=== PATIENT | female | born 1985 | race Caucasian/White ===

== ENCOUNTER 2018-11-15 12:52 | Emergency (ER) | payer SELFPAY ==
[~2018-11-15] VITALS: Ht 170.2 cm; Wt 83.9 kg
[2018-11-15] MEDS: LACTATED RINGERS 1,000 ML IV ONE ×2 (14:01→18:14)
[2018-11-15 14:40] LABS: BASOPHILS % (AUTO) 1 % (0-10); EOSINOPHILS % (AUTO) 1 % (0-10); HEMATOCRIT 40 % (35-52); HEMOGLOBIN 13.8 G/DL (11.5-16.0); LYMPHOCYTES % (AUTO) 21 % (12-44); MEAN CORPUSCULAR HEMOGLOBIN 28 PG (25-34); MEAN CORPUSCULAR HGB CONC 34 G/DL (32-36); MEAN CORPUSCULAR VOLUME 83 FL (80-99); MEAN PLATELET VOLUME 12.3 FL (7.4-10.4); MONOCYTES % (AUTO) 5 % (0-12); NEUTROPHILS % (AUTO) 72 % (42-75); PLATELET COUNT 246 10^3/uL (130-400); RED CELL DISTRIBUTION WIDTH 12.9 % (10.0-14.5)
[2018-11-15 14:41] LABS: BASOPHILS # (AUTO) 0.1 10^3/uL (0.0-0.1); EOSINOPHILS # (AUTO) 0.1 10^3/uL (0.0-0.3); LYMPHOCYTES # (AUTO) 1.7 X 10^3 (1.0-4.0); MONOCYTES # (AUTO) 0.4 X 10^3 (0.0-1.0); NEUTROPHILS # (AUTO) 5.8 X 10^3 (1.8-7.8)
[2018-11-15 15:07] LABS: SODIUM 139 MMOL/L (135-145)
[2018-11-15 15:08] LABS: BUN/CREATININE RATIO 27; CARBON DIOXIDE 21 MMOL/L (21-32); CHLORIDE 102 MMOL/L (98-107); CREATININE SERUM 0.71 MG/DL (0.60-1.30); GFR ESTIMATED > 60; GLUCOSE 85 MG/DL (70-105); POTASSIUM 3.6 MMOL/L (3.6-5.0)
[2018-11-15 15:09] LABS: ALANINE AMINOTRANSFERASE 12 U/L (0-55); ALKALINE PHOSPHATASE 68 U/L (40-136); BILIRUBIN,TOTAL 0.7 MG/DL (0.1-1.0); CALCIUM 9.3 MG/DL (8.5-10.1); TOTAL PROTEIN 7.4 GM/DL (6.4-8.2)
[2018-11-15] MEDS ORDERED: LACTATED RINGERS 1,000 ML IV SCH (15:30)
[2018-11-15 15:32] VITALS: BP 104/50
--- NOTE | 2018-11-15 15:45 | NUR ---
Transferred from cart in triage room to ER 06 via bed, room now available.
[2018-11-15] MEDS ORDERED: LACTATED RINGERS 1,000 ML IV ONE (16:32)
[2018-11-15 17:02] LABS: AMPHETAMINE SCREEN, URINE POSITIVE (NEGATIVE); BARBITURATE SCREEN URINE NEGATIVE (NEGATIVE); BENZODIAZEPINES SCREEN URINE NEGATIVE (NEGATIVE); CANNABINOID SCREEN, URINE POSITIVE (NEGATIVE); CLARITY,URINE CLEAR; COCAINE SCREEN URINE NEGATIVE (NEGATIVE); COLOR,URINE YELLOW; METHADONE STAT NEGATIVE (NEGATIVE); METHAMPHETAMINE SCREEN URINE S NEGATIVE (NEGATIVE); OPIATE SCREEN URINE NEGATIVE (NEGATIVE); OXYCODONE STAT NEGATIVE (NEGATIVE); PROPOXYPHENE STAT NEGATIVE (NEGATIVE); TRICYCLIC ANTIDEPRESSANTS SCRE NEGATIVE (NEGATIVE)
[2018-11-15 17:03] LABS: BILIRUBIN,URINE 1+ (NEGATIVE); GLUCOSE, URINE (UA) NEGATIVE (NEGATIVE); KETONES,URINE 3+ (NEGATIVE); LEUKOCYTE ESTERASE ,URINE NEGATIVE (NEGATIVE); NITRITE,URINE NEGATIVE (NEGATIVE); PROTEIN,URINE NEGATIVE (NEGATIVE); SQUAMOUS EPITHELIAL CELL,UR RARE /HPF; UROBILINOGEN,URINE 0.2 MG/DL (NORMAL)
--- NOTE | 2018-11-15 17:22 | ED Neurological Problem ---
General Chief Complaint: General Problems/Pain Stated Complaint: TREMORS Source: patient, family, RN notes reviewed Exam Limitations: no limitations History of Present Illness Date Seen by Provider: November 15, 2018 Time Seen by Provider: 13:40 Initial Comments Patient presents c/ c/o shaking, stress, & depression. Reportedly hasn't eaten has several days. Been laying in bed. Going thru a divorce. Timing/Duration: constant, increasing Severity: moderate Associated Symptoms: denies symptoms (x/ as noted.) Allergies and Home Medications Allergies Coded Allergies: No Known Drug Allergies (Unverified , 11/15/18) Patient Home Medication List Home Medication List Reviewed: Yes Review of Systems Review of Systems Constitutional: see HPI, weight loss : No Psychiatric/Neurological: See HPI, Depressed All Other Systems Reviewed Negative Unless Noted: Yes (Negative excepted noted.) Physical Exam Vital Signs Vital Signs - First Documented 11/15/18 13:06 Temp 97.7 Pulse 122 Resp 20 B/P (MAP) 146/88 (107) Pulse Ox 97 O2 Delivery Room Air Capillary Refill : Height, Weight, BMI Height: '" Weight: lbs. oz. kg; BMI Method: General Appearance: WD/WN, no apparent distress HEENT: other (mucosa very dry) Respiratory: no respiratory distress Cardiovascular: tachycardia Gastrointestinal: soft; No tenderness Neurologic/Psychiatric: no motor/sensory deficits, alert, depressed affect Skin: warm/dry Progress/Results/Core Measures Results/Orders Lab Results Laboratory Tests Test 11/15/18 13:32 11/15/18 13:50 11/15/18 16:31 Range/Units Glucometer 86 70-110 MG/DL White Blood Count 8.0 4.3-11.0 10^3/uL Red Blood Count 4.88 4.35-5.85 10^6/uL Hemoglobin 13.8 11.5-16.0 G/DL Hematocrit 40 35-52 % Mean Corpuscular Volume 83 80-99 FL Mean Corpuscular Hemoglobin 28 25-34 PG Mean Corpuscular Hemoglobin Concent 34 32-36 G/DL Red Cell Distribution Width 12.9 10.0-14.5 % Platelet Count 246 130-400 10^3/uL Mean Platelet Volume 12.3 H 7.4-10.4 FL Neutrophils (%) (Auto) 72 42-75 % Lymphocytes (%) (Auto) 21 12-44 % Monocytes (%) (Auto) 5 0-12 % Eosinophils (%) (Auto) 1 0-10 % Basophils (%) (Auto) 1 0-10 % Neutrophils # (Auto) 5.8 1.8-7.8 X 10^3 Lymphocytes # (Auto) 1.7 1.0-4.0 X 10^3 Monocytes # (Auto) 0.4 0.0-1.0 X 10^3 Eosinophils # (Auto) 0.1 0.0-0.3 10^3/uL Basophils # (Auto) 0.1 0.0-0.1 10^3/uL Sodium Level 139 135-145 MMOL/L Potassium Level 3.6 3.6-5.0 MMOL/L Chloride Level 102 98-107 MMOL/L Carbon Dioxide Level 21 21-32 MMOL/L Anion Gap 16 H 5-14 MMOL/L Blood Urea Nitrogen 19 H 7-18 MG/DL Creatinine 0.71 0.60-1.30 MG/DL Estimat Glomerular Filtration Rate > 60 BUN/Creatinine Ratio 27 Glucose Level 85 70-105 MG/DL Calcium Level 9.3 8.5-10.1 MG/DL Corrected Calcium 9.3 8.5-10.1 MG/DL Total Bilirubin 0.7 0.1-1.0 MG/DL Aspartate Amino Transf (AST/SGOT) 15 5-34 U/L Alanine Aminotransferase (ALT/SGPT) 12 0-55 U/L Alkaline Phosphatase 68 40-136 U/L Total Protein 7.4 6.4-8.2 GM/DL Albumin 4.0 3.2-4.5 GM/DL Thyroid Stimulating Hormone (TSH) 0.75 0.35-4.94 UIU/ML Urine Color YELLOW Urine Clarity CLEAR Urine pH 6.0 5-9 Urine Specific [place] 1.025 H 1.016-1.022 Urine Protein NEGATIVE NEGATIVE Urine Glucose (UA) NEGATIVE NEGATIVE Urine Ketones 3+ H NEGATIVE Urine Nitrite NEGATIVE NEGATIVE Urine Bilirubin 1+ H NEGATIVE Urine Urobilinogen 0.2 NORMAL MG/DL Urine Leukocyte Esterase NEGATIVE NEGATIVE Urine RBC (Auto) NEGATIVE NEGATIVE Urine RBC NONE /HPF Urine WBC NONE /HPF Urine Squamous Epithelial Cells RARE /HPF Urine Crystals NONE /LPF Urine Bacteria NONE /HPF Urine Casts NONE /LPF Urine Mucus NEGATIVE /LPF Urine Culture Indicated NO Urine Opiates Screen NEGATIVE NEGATIVE Urine Oxycodone Screen NEGATIVE NEGATIVE Urine Methadone Screen NEGATIVE NEGATIVE Urine Propoxyphene Screen NEGATIVE NEGATIVE Urine Barbiturates Screen NEGATIVE NEGATIVE Ur Tricyclic Antidepressants Screen NEGATIVE NEGATIVE Urine Phencyclidine Screen NEGATIVE NEGATIVE Urine Amphetamines Screen POSITIVE H NEGATIVE Urine Methamphetamines Screen NEGATIVE NEGATIVE Urine Benzodiazepines Screen NEGATIVE NEGATIVE Urine Cocaine Screen NEGATIVE NEGATIVE Urine Cannabinoids Screen POSITIVE H NEGATIVE My Orders Orders - THOMAS COMER DO Lactated Ringers (Lr 1000 Ml Iv Solution (11/15/18 13:40) Cbc With Automated Diff (11/15/18 14:05) Comprehensive Metabolic Panel (11/15/18 14:05) Ua Culture If Indicated (11/15/18 14:05) Drug Screen Stat (Urine) (11/15/18 14:05) Ed Iv/Invasive Line Start (11/15/18 14:07) Thyroid Stimulating Hormone (11/15/18 13:50) Lactated Ringers (Lr 1000 Ml Iv Solution (11/15/18 15:30) Ed Iv/Invasive Line Start (11/15/18 16:32) Lactated Ringers (Lr 1000 Ml Iv Solution (11/15/18 16:32) Ekg Tracing (11/15/18 13:24) Medications Given in ED Vital Signs/I&O 11/15/18 11/15/18 11/15/18 13:06 15:32 17:32 Temp 97.7 98.1 97.2 Pulse 122 67 79 Resp 20 18 20 B/P (MAP) 146/88 (107) 104/50 (68) 131/63 (85) Pulse Ox 97 98 98 O2 Delivery Room Air Room Air Room Air Departure Impression Primary Impression: Tremor Additional Impressions: Depression Dehydration Ketonuria Disposition: 01 HOME, SELF-CARE Condition: Improved Departure-Patient Inst. Decision time for Depature: 17:20 Referrals: KAVEH HENNESSY MD (PCP/Family) Primary Care Physician Patient Instructions: Depression, Adult (DC), Tremor, Dehydration, Adult (DC) Add. Discharge Instructions: All discharge instructions reviewed with patient and/or family. Voiced understanding. NEED TO EAT AND DRINK BETTER. RECOMMEND CONTACTING DR. HENNESSY IN THE AM, 5/8, FOR ASSISTANCE WITH YOUR SITUATIONAL STRESS. THOMAS COMER DO November 15, 2018 17:22
[2018-11-15 17:32] VITALS: BP 131/63
== END 2018-11-15 17:32 | disposition home or self-care (01) ==
LOC: ER FS 12:54
DX: R25.1 Tremor, unspecified (principal); F32.9 Major depressive disorder, single episode, unspecified; E86.0 Dehydration; R82.4 Acetonuria
CPT/HCPCS: 36415; 80053; 80306; 81000; 82962; 84443; 85025

== ENCOUNTER 2019-01-28 19:41 | Emergency (ER) | payer BC | END 2019-01-28 23:37 | disposition home or self-care (01) | LOC: ER FS 19:41 ==

== ENCOUNTER 2019-01-31 20:01 | Inpatient (IN) | payer BC ==
[~2019-01-31] VITALS: Ht 170.2 cm; Wt 54.1 kg
[~2019-01-31 20:01] MED LIST: CYCL5TAB PO
--- OUTSIDE RECORDS SUMMARY | 2019-01-31 20:09 | XMS REPORT | Continuity of Care Document ---
Author Organization Unknown Address Unknown Allergies Active Description Code Type Severity Reaction Onset Reported/Identified Relationship to Patient Clinical Status Yes No Known Drug Allergies [id number] Drug Allergy Unknown N/A 11/15/2018 Yes codiene codiene Unknown N/A 01/28/2019 Medications There is no data. Problems Date Dx Coded Attending Type Code Diagnosis Diagnosed By 11/15/2018 THOMAS COMER DO, Ot E86.0 DEHYDRATION 11/15/2018 THOMAS COMER DO, Ot F32.9 MAJOR DEPRESSIVE DISORDER, SINGLE EPISOD 11/15/2018 THOMAS COMER DO Ot R25.1 TREMOR, UNSPECIFIED 11/15/2018 THOMAS COMER DO Ot R82.4 ACETONURIA 11/17/2018 THOMAS COMER DO Ot E86.0 DEHYDRATION 11/17/2018 THOMAS COMER DO Ot F32.9 MAJOR DEPRESSIVE DISORDER, SINGLE EPISOD 11/17/2018 THOMAS COMER DO Ot R25.1 TREMOR, UNSPECIFIED 11/17/2018 THOMAS COMER DO, Ot R82.4 ACETONURIA Procedures There is no data. Results Test Result Range Capillary blood glucose measurement by glucometer (mass/volume) - 11/15/18 13:32 Capillary blood glucose measurement by glucometer (mass/volume) 86 mg/dL 70-110 Complete blood count (CBC) with automated white blood cell (WBC) differential - 11/15/18 13:50 Blood leukocytes automated count (number/volume) 8.0 10*3/uL 4.3-11.0 Blood erythrocytes automated count (number/volume) 4.88 10*6/uL 4.35-5.85 Venous blood hemoglobin measurement (mass/volume) 13.8 g/dL 11.5-16.0 Blood hematocrit (volume fraction) 40 % 35-52 Automated erythrocyte mean corpuscular volume 83 [foz_us] 80-99 Automated erythrocyte mean corpuscular hemoglobin (mass per erythrocyte) 28 pg 25-34 Automated erythrocyte mean corpuscular hemoglobin concentration measurement (mass/volume) 34 g/dL 32-36 Automated erythrocyte distribution width ratio 12.9 % 10.0- 14.5 Automated blood platelet count (count/volume) 246 10*3/uL 130-400 Automated blood platelet mean volume measurement 12.3 [foz_us] 7.4-10.4 Automated blood neutrophils/100 leukocytes 72 % 42-75 Automated blood lymphocytes/100 leukocytes 21 % 12-44 Blood monocytes/100 leukocytes 5 % 0-12 Automated blood eosinophils/100 leukocytes 1 % 0-10 Automated blood basophils/100 leukocytes 1 % 0-10 Blood neutrophils automated count (number/volume) 5.8 10*3 1.8-7.8 Blood lymphocytes automated count (number/volume) 1.7 10*3 1.0-4.0 Blood monocytes automated count (number/volume) 0.4 10*3 0.0- 1.0 Automated eosinophil count 0.1 10*3/uL 0.0-0.3 Automated blood basophil count (count/volume) 0.1 10*3/uL 0.0-0.1 Comprehensive metabolic panel - 11/15/18 13:50 Serum or plasma sodium measurement (moles/volume) 139 mmol/L 135-145 Serum or plasma potassium measurement (moles/volume) 3.6 mmol/L 3.6-5.0 Serum or plasma chloride measurement (moles/volume) 102 mmol/L 98-107 Carbon dioxide 21 mmol/L 21-32 Serum or plasma anion gap determination (moles/volume) 16 mmol/L 5-14 Serum or plasma urea nitrogen measurement (mass/volume) 19 mg/dL 7-18 Serum or plasma creatinine measurement (mass/volume) 0.71 mg/dL 0.60-1.30 Serum or plasma urea nitrogen/creatinine mass ratio 27 NRG Serum or plasma creatinine measurement with calculation of estimated glomerular filtration rate > NRG Serum or plasma glucose measurement (mass/volume) 85 mg/dL 70-105 Serum or plasma calcium measurement (mass/volume) 9.3 mg/dL 8.5-10.1 Serum or plasma total bilirubin measurement (mass/volume) 0.7 mg/dL 0.1-1.0 Serum or plasma alkaline phosphatase measurement (enzymatic activity/volume) 68 U/L 40-136 Serum or plasma aspartate aminotransferase measurement (enzymatic activity/volume) 15 U/L 5-34 Serum or plasma alanine aminotransferase measurement (enzymatic activity/volume) 12 U/L 0-55 Serum or plasma protein measurement (mass/volume) 7.4 g/dL 6.4-8.2 Serum or plasma albumin measurement (mass/volume) 4.0 g/dL 3.2-4.5 CALCIUM CORRECTED 9.3 mg/dL 8.5-10.1 THYROID STIMULATING HORMONE - 11/15/18 13:50 THYROID STIMULATING HORMONE 0.75 u[iU]/mL 0.35-4.94 Blood CBC with ordered manual differential panel - 01/28/19 19:40 Blood leukocytes automated count (number/volume) 4.5 10*3/uL 4.3-11.0 Blood erythrocytes automated count (number/volume) 5.09 10*6/uL 4.35-5.85 Venous blood hemoglobin measurement (mass/volume) 14.4 g/dL 11.5-16.0 Blood hematocrit (volume fraction) 42 % 35-52 Automated erythrocyte mean corpuscular volume 83 [foz_us] 80-99 Automated erythrocyte mean corpuscular hemoglobin (mass per erythrocyte) 28 pg 25-34 Automated erythrocyte mean corpuscular hemoglobin concentration measurement (mass/volume) 34 g/dL 32-36 Automated erythrocyte distribution width ratio 13.8 % 10.0- 14.5 Automated blood platelet count (count/volume) 159 10*3/uL 130-400 Automated blood platelet mean volume measurement 11.1 [foz_us] 7.4-10.4 Automated blood neutrophils/100 leukocytes 91 % 42-75 Automated blood lymphocytes/100 leukocytes 6 % 12-44 Blood monocytes/100 leukocytes 5 % NRG Automated blood eosinophils/100 leukocytes 0 % 0-10 Automated blood basophils/100 leukocytes 0 % 0-10 Blood neutrophils automated count (number/volume) 4.1 10*3 1.8-7.8 Blood lymphocytes automated count (number/volume) 0.2 10*3 1.0-4.0 Blood monocytes automated count (number/volume) 0.1 10*3 0.0- 1.0 Automated eosinophil count 0.0 10*3/uL 0.0-0.3 Automated blood basophil count (count/volume) 0.0 10*3/uL 0.0-0.1 Manual blood segmented neutrophils/100 leukocytes 74 % NRG Blood band neutrophils/100 leukocytes 15 % NRG Manual blood lymphocytes/100 leukocytes 6 % NRG Blood erythrocyte morphology finding identification NORMAL NR Comprehensive metabolic panel - 01/28/19 19:40 Serum or plasma sodium measurement (moles/volume) 135 mmol/L 135-145 Serum or plasma potassium measurement (moles/volume) 3.7 mmol/L 3.6-5.0 Serum or plasma chloride measurement (moles/volume) 97 mmol/L 98-107 Carbon dioxide 22 mmol/L 21-32 Serum or plasma anion gap determination (moles/volume) 16 mmol/L 5-14 Serum or plasma urea nitrogen measurement (mass/volume) 12 mg/dL 7-18 Serum or plasma creatinine measurement (mass/volume) 0.73 mg/dL 0.60-1.30 Serum or plasma urea nitrogen/creatinine mass ratio 16 NRG Serum or plasma creatinine measurement with calculation of estimated glomerular filtration rate > NRG Serum or plasma glucose measurement (mass/volume) 130 mg/dL 70-105 Serum or plasma calcium measurement (mass/volume) 9.0 mg/dL 8.5-10.1 Serum or plasma total bilirubin measurement (mass/volume) 0.5 mg/dL 0.1-1.0 Serum or plasma alkaline phosphatase measurement (enzymatic activity/volume) 74 U/L 40-136 Serum or plasma aspartate aminotransferase measurement (enzymatic activity/volume) 26 U/L 5-34 Serum or plasma alanine aminotransferase measurement (enzymatic activity/volume) 25 U/L 0-55 Serum or plasma protein measurement (mass/volume) 7.4 g/dL 6.4-8.2 Serum or plasma albumin measurement (mass/volume) 4.0 g/dL 3.2-4.5 CALCIUM CORRECTED 9.0 mg/dL 8.5-10.1 Complete urinalysis with reflex to culture - 01/28/19 20:30 Urine color determination DARK YELLOW NRG Urine clarity determination SL CLOUDY NRG Urine pH measurement by test strip 7.0 5-9 Specific gravity of urine by test strip 1.015 1.016-1.022 Urine protein assay by test strip, semi-quantitative 1+ NEGATIVE Urine glucose detection by automated test strip NEGATIVE NEGATIVE Erythrocytes detection in urine sediment by light microscopy NEGATIVE NEGATIVE Urine ketones detection by automated test strip 1+ NEGATIVE Urine nitrite detection by test strip NEGATIVE NEGATIVE Urine total bilirubin detection by test strip 1+ NEGATIVE Urine urobilinogen measurement by automated test strip (mass/volume) 1.0 mg/dL NORMAL Urine leukocyte esterase detection by dipstick TRACE NEGATIVE Automated urine sediment erythrocyte count by microscopy (number/high power field) NONE NRG Automated urine sediment leukocyte count by microscopy (number/high power field) [HPF] NRG Bacteria detection in urine sediment by light microscopy MODERATE NRG Squamous epithelial cells detection in urine sediment by light microscopy 25-50 NRG Crystals detection in urine sediment by light microscopy NONE NRG Casts detection in urine sediment by light microscopy NONE NRG Mucus detection in urine sediment by light microscopy MODERATE NRG Complete urinalysis with reflex to culture YES NRG Bacterial urine culture - 01/28/19 20:30 Bacterial urine culture UMSF NRG COLONY COUNT . NRG FTX;REPORTABLE ISOLATED; NO SUSCEPTIBILITIES SET UP NRG FREE TEXT ENTRY 2 SEE COMMENTS NRG Encounters ACCT No. Visit Date/Time Discharge Status Pt. Type Provider Facility Loc./Unit Complaint [id number] 01/04/2019 12:30:00 01/04/2019 23:59:59 CLS Outpatient KAVEH HENNESSY [facility] [id number] 01/28/2019 19:41:00 01/28/2019 23:37:00 DIS Emergency IVAN MOTLEY, BETZY Seth [facility] ER FS FEVER; GENERAL ACHING; HX GASTRIC SLEEEVE [id number] 11/15/2018 12:54:00 11/15/2018 17:32:00 DIS Emergency THOMAS COMER DO [facility] ER FS TREMORS
--- NOTE | 2019-01-31 20:25 | ED General ---
General Chief Complaint: General Problems/Pain Stated Complaint: FEVER,CHILLS,GRIMALDO Nursing Triage Note: PT STATES ON WEDNESDAY SHE BEGAN HAVING N/V AND FEVER. PT WAS SEEN WEDNESDAY NIGHT AT THE ER. PT STATES ALL OVER GENERALIZED PAIN. PT DENIES SICK CONTACTS. PT STATES 1 EPISODE OF VOMIT TODAY. PT STATES FEVERS 101-102 TREATED WITH TYLENOL AND IBUPROFEN. PT STATES SHE HAS NOT HAD MEDICAITON SINCE THIS AM. Nursing Sepsis Screen: No Definite Risk Source of Information: Patient Exam Limitations: No Limitations History of Present Illness Date Seen by Provider: Jan 31, 2019 Time Seen by Provider: 20:22 Initial Comments ER per private vehicle accompanied by parents with reports of fever nausea and vomiting that began on Wednesday. She was seen on Wednesday in the emergency room at [facility] is told labs were normal. Reports diffuse pain that seems to be most focused in her low back that radiates down the right leg. Temperatures at home have been 101-105. No loss of sensation and genitals, no bowel or bladder incontinence. No cough, no chest pain and no shortness of breath. The pain that she describes is intermittent sharp shooting pain in her low back that goes down the right leg and up into her head. On arrival to ER she is 98.9, no use of antipyretics since early this morning. She denies any abdominal pain or diarrhea. Timing/Duration: 1-2 Days Severity: Moderate Associated Systoms: No Chest Pain, No Cough, No Diaphoresis; Fever/Chills, Headaches, Nausea/Vomiting; No Rash Allergies and Home Medications Allergies Uncoded Allergies: aura (Allergy, Unknown, 01/28/19) Home Medications Cyclobenzaprine HCl 5 Mg Tablet, 5 MG PO TID PRN for BACK PAIN, (Reported) Patient Home Medication List Home Medication List Reviewed: Yes Review of Systems Review of Systems Constitutional: see HPI, chills, fever, malaise, weakness EENTM: see HPI Respiratory: no symptoms reported Cardiovascular: no symptoms reported Genitourinary: no symptoms reported Musculoskeletal: see HPI, back pain Skin: no symptoms reported Psychiatric/Neurological: No Symptoms Reported Hematologic/Lymphatic: No Symptoms Reported Immunological/Allergic: no symptoms reported Past Hnctpgx-Ypygru-Vzzxdo Hx Patient Social History Alcohol Use: Denies Use Recreational Drug Use: Yes Drug of Choice: marijuana Smoking Status: Never a Smoker 2nd Hand Smoke Exposure: Yes Recent Foreign Travel: No Contact w/Someone Who Travel: No Recent Infectious Disease Expo: No Recent Hopitalizations: No Physical Abuse: No Sexual Abuse: No Mistreated: No Fear: No Seasonal Allergies Seasonal Allergies: No Past Medical History Surgeries: Yes (gastric surgery 2017) Respiratory: No Cardiac: No Neurological: No Genitourinary: No Gastrointestinal: No Musculoskeletal: No Endocrine: No HEENT: No Cancer: No Psychosocial: No Blood Disorders: No Physical Exam Vital Signs Vital Signs - First Documented 01/31/19 01/31/19 20:10 20:30 Temp 99.3 Pulse 91 Resp 18 B/P (MAP) 110/71 (84) Pulse Ox 99 O2 Delivery Room Air Capillary Refill : Less Than 3 Seconds Height, Weight, BMI Height: 5'7.00" Weight: 190lbs. oz. 86.023894vj; BMI Method:Stated General Appearance: No Apparent Distress, WD/WN, Other (hirsutism noted.) Eyes: Bilateral Eye Normal Inspection, Bilateral Eye PERRL, Bilateral Eye EOMI HEENT: PERRL/EOMI, TMs Normal, Normal ENT Inspection Neck: Full Range of Motion (she is able to flex her chin all the way to her chest without any neck pain. There is no nuchal rigidity), Normal Inspection, Other (mild posterior cervical chain adenopathy bilaterally) Respiratory: No Accessory Muscle Use, No Respiratory Distress Cardiovascular: Regular Rate, Rhythm, Normal Peripheral Pulses Gastrointestinal: Normal Bowel Sounds, Non Tender, Soft, Other (her abdomen is flat soft and completely nontender in all quadrants) Extremity: Normal Capillary Refill, Normal Inspection Neurologic/Psychiatric: Alert, Oriented x3 Skin: Normal Color, Warm/Dry, Other (no rash or lesions are identified) Focused Exam Lactate Level 01/31/19 20:22: Lactic Acid Level 1.51 Lactic Acid Level Laboratory Tests Test 01/31/19 20:22 Lactic Acid Level 1.51 MMOL/L (0.50-2.00) Progress/Results/Core Measures Suspected Sepsis Recent Fever Within 48 Hours: Yes Infection Criteria Present: None New/Unexplained Altered Menta: No Sepsis Screen: No Definite Risk SIRS Temperature:99.3 Pulse: 91 Respiratory Rate: 18 Laboratory Tests 01/31/19 20:22: White Blood Count 2.8L Blood Pressure 110 /71 Mean: 84 01/31/19 20:22: Lactic Acid Level 1.51 Laboratory Tests 01/31/19 20:22: Creatinine 0.76, INR Comment 1.0, Platelet Count 120L, Total Bilirubin 2.9H Results/Orders Lab Results Laboratory Tests Test 01/31/19 20:22 01/31/19 20:53 01/31/19 21:57 Range/Units White Blood Count 2.8 L 4.3-11.0 10^3/uL Red Blood Count 4.95 4.35-5.85 10^6/uL Hemoglobin 13.6 11.5-16.0 G/DL Hematocrit 39 35-52 % Mean Corpuscular Volume 78 L 80-99 FL Mean Corpuscular Hemoglobin 28 25-34 PG Mean Corpuscular Hemoglobin Concent 35 32-36 G/DL Red Cell Distribution Width 14.2 10.0-14.5 % Platelet Count 120 L 130-400 10^3/uL Mean Platelet Volume 11.8 H 7.4-10.4 FL Neutrophils (%) (Auto) 62 42-75 % Lymphocytes (%) (Auto) 26 12-44 % Monocytes (%) (Auto) 10 0-12 % Eosinophils (%) (Auto) 0 0-10 % Basophils (%) (Auto) 3 0-10 % Neutrophils # (Auto) 1.7 L 1.8-7.8 X 10^3 Lymphocytes # (Auto) 0.7 L 1.0-4.0 X 10^3 Monocytes # (Auto) 0.3 0.0-1.0 X 10^3 Eosinophils # (Auto) 0.0 0.0-0.3 10^3/uL Basophils # (Auto) 0.1 0.0-0.1 10^3/uL Erythrocyte Sedimentation Rate 5 0-20 MM/HR Prothrombin Time 13.9 12.2-14.7 SEC INR Comment 1.0 0.8-1.4 Activated Partial Thromboplast Time 30 24-35 SEC Sodium Level 135 135-145 MMOL/L Potassium Level 3.5 L 3.6-5.0 MMOL/L Chloride Level 100 98-107 MMOL/L Carbon Dioxide Level 20 L 21-32 MMOL/L Anion Gap 15 H 5-14 MMOL/L Blood Urea Nitrogen 14 7-18 MG/DL Creatinine 0.76 0.60-1.30 MG/DL Estimat Glomerular Filtration Rate > 60 BUN/Creatinine Ratio 18 Glucose Level 83 70-105 MG/DL Lactic Acid Level 1.51 0.50-2.00 MMOL/L Calcium Level 8.7 8.5-10.1 MG/DL Corrected Calcium 9.1 8.5-10.1 MG/DL Total Bilirubin 2.9 H 0.1-1.0 MG/DL Aspartate Amino Transf (AST/SGOT) 257 H 5-34 U/L Alanine Aminotransferase (ALT/SGPT) 240 H 0-55 U/L Alkaline Phosphatase 348 H 40-136 U/L Total Creatine Kinase 33 29-168 U/L C-Reactive Protein High Sensitivity 9.88 H 0.00-0.50 MG/DL Total Protein 6.5 6.4-8.2 GM/DL Albumin 3.5 3.2-4.5 GM/DL Lipase 7 L 8-78 U/L Serum Test, Qualitative NEGATIVE NEGATIVE Monoscreen NEGATIVE NEGATIVE My Orders Orders - MARTY ALAS APRN Cbc With Automated Diff (01/31/19 20:19) Comprehensive Metabolic Panel (01/31/19 20:19) Blood Culture (01/31/19 20:19) Sputum Culture (01/31/19 20:19) Urinalysis (01/31/19 20:19) Urine Culture (01/31/19 20:19) Protime With Inr (01/31/19 20:19) Partial Thromboplastin Time (01/31/19 20:19) Chest 1 View, Ap/Pa Only (01/31/19 20:19) Ed Iv/Invasive Line Start (01/31/19 20:19) Vital Signs Adult Sepsis Patie Q15M (01/31/19 20:19) O2 (01/31/19 20:19) Remove Rings In Anticipation O (01/31/19 20:19) Lactic Acid Analyzer (01/31/19 20:19) Erythrocyte Sedimentation Rate (01/31/19 20:19) Hs C Reactive Protein (01/31/19 20:19) Tick Panel With Lyme Eia (01/31/19 20:19) Ct Head Wo (01/31/19 20:21) Ct Lumbar Spine W Wo (01/31/19 20:21) Ketorolac Injection (Toradol Injection) (01/31/19 20:30) Monotest (01/31/19 20:28) Creatine Kinase (01/31/19 20:28) Drug Screen Stat (Urine) (01/31/19 20:28) Hcg,Qualitative Serum (01/31/19 20:28) Iohexol Injection (Omnipaque 350 Mg/Ml 1 (01/31/19 20:45) Received Contrast (Hold Metformin- Contr (01/31/19 20:45) Ns (Ivpb) (Sodium Chloride 0.9% Ivpb Bag (01/31/19 20:45) Lactated Ringers (Lr 1000 Ml Iv Solution (01/31/19 21:45) Lipase (01/31/19 21:42) Ct Abdomen/Pelvis Wo (01/31/19 21:54) Hepatitis Panel Acute (01/31/19 21:56) Manual Differential (01/31/19 22:02) Doxycycline 100 Mg Iv (1x Dose (01/31/19 22:15) Rocephin 1 Gm Iv (1x Dose) (01/31/19 22:15) Medications Given in ED Current Medications Medications Dose Ordered Sig/Prasanna Route Start Time Stop Time Status Last Admin Dose Admin Iohexol 100 ml ONCE ONCE IV 01/31/19 20:45 01/31/19 20:46 DC 01/31/19 20:54 100 ML Ketorolac Tromethamine 15 mg ONCE ONCE IVP 01/31/19 20:30 01/31/19 20:31 DC 01/31/19 20:30 15 MG Sodium Chloride 100 ml ONCE ONCE IV 01/31/19 20:45 01/31/19 20:46 DC 01/31/19 20:54 80 ML Vital Signs/I&O 01/31/19 01/31/19 01/31/19 20:10 20:30 20:31 Temp 99.3 99.3 Pulse 91 91 Resp 18 18 B/P (MAP) 110/71 (84) 110/71 (84) Pulse Ox 99 O2 Delivery Room Air Capillary Refill : Less Than 3 Seconds Blood Pressure Mean: 84 Departure Communication (Admissions) Time/Spoke to Admitting Phy: 22:[address] Chatterjee, recommends tick panel and empiric doxycycline. manual diff looking for morula. Impression Primary Impression: Elevated LFTs Additional Impressions: Leukopenia Qualified Codes: D72.819 - Decreased white blood cell count, unspecified Thrombocytopenia Suspected tick bite Disposition: ADMITTED INPATIENT Condition: Stable Admissions Decision to Admit Reason: Admit from ER (General) Decision to Admit/Date: Jan 31, 2019 Time/Decision to Admit Time: 22:04 Departure-Patient Inst. Referrals: KAVEH HENNESSY MD (PCP/Family) Primary Care Physician MARTY ALAS APRN Jan 31, 2019 20:25
[2019-01-31] MEDS ORDERED: KETOROLAC 30 MG/ML VIAL IVP ONE (20:30)
[2019-01-31 20:31] VITALS: BP 110/71
[2019-01-31 20:34] LABS: BASOPHILS # (AUTO) 0.1 10^3/uL (0.0-0.1); BASOPHILS % (AUTO) 3 % (0-10); EOSINOPHILS % (AUTO) 0 % (0-10); HEMATOCRIT 39 % (35-52); HEMOGLOBIN 13.6 G/DL (11.5-16.0); LYMPHOCYTES # (AUTO) 0.7 X 10^3 (1.0-4.0); LYMPHOCYTES % (AUTO) 26 % (12-44); MEAN CORPUSCULAR HEMOGLOBIN 28 PG (25-34); MEAN CORPUSCULAR HGB CONC 35 G/DL (32-36); MEAN CORPUSCULAR VOLUME 78 FL (80-99); MEAN PLATELET VOLUME 11.8 FL (7.4-10.4); MONOCYTES # (AUTO) 0.3 X 10^3 (0.0-1.0); MONOCYTES % (AUTO) 10 % (0-12); NEUTROPHILS # (AUTO) 1.7 X 10^3 (1.8-7.8); NEUTROPHILS % (AUTO) 62 % (42-75); PLATELET COUNT 120 10^3/uL (130-400); RED CELL DISTRIBUTION WIDTH 14.2 % (10.0-14.5)
[2019-01-31] MEDS ORDERED: HOLD METFORMIN - RECEIVED CONTRAST 20 ML VIAL IV SCH (20:45)
[2019-01-31] MEDS ORDERED: NS 100 ML (IVPB) BAG IV ONE (20:45)
[2019-01-31] MEDS ORDERED: IOHEXOL 350 MG/ML 100 ML (OMNIPAQUE 350) VIAL IV ONE (20:45)
[2019-01-31 20:56] LABS: PROTHROMBIN TIME PATIENT 13.9 SEC (12.2-14.7)
[2019-01-31 20:59] LABS: ALANINE AMINOTRANSFERASE 240 U/L (0-55); ALBUMIN 3.5 GM/DL (3.2-4.5); ALKALINE PHOSPHATASE 348 U/L (40-136); BILIRUBIN,TOTAL 2.9 MG/DL (0.1-1.0); BUN/CREATININE RATIO 18; CALCIUM 8.7 MG/DL (8.5-10.1); CARBON DIOXIDE 20 MMOL/L (21-32); CHLORIDE 100 MMOL/L (98-107); CREATINE KINASE 33 U/L (29-168); CREATININE SERUM 0.76 MG/DL (0.60-1.30); GFR ESTIMATED > 60; GLUCOSE 83 MG/DL (70-105); POTASSIUM 3.5 MMOL/L (3.6-5.0); SODIUM 135 MMOL/L (135-145); TOTAL PROTEIN 6.5 GM/DL (6.4-8.2)
[2019-01-31 21:08] LABS: ERYTHROCYTE SEDIMENTATION RATE 5 MM/HR (0-20)
--- NOTE | 2019-01-31 21:23 | Diagnostic Imaging Report ---
Patient: Eri Ling Date of : 1985 Medical record number: [id number] Examination: Single frontal view of the chest Indication: Nausea and fever. Comparison: None available. Findings: The lungs are clear and the pulmonary vasculature is normal. No pneumothorax or large pleural effusion. The cardiomediastinal silhouette is normal. No acute osseous abnormality is demonstrated. Impression: No radiographic evidence of acute chest disease. Dictated by: Dictated on workstation # [id number]
--- NOTE | 2019-01-31 21:24 | Diagnostic Imaging Report ---
PROCEDURE: CT head without contrast. TECHNIQUE: Multiple contiguous axial images were obtained through the brain without the use of intravenous contrast. Auto Exposure Controls were utilized during the CT exam to meet ALARA standards for radiation dose reduction. INDICATION: Headache, fever, and chills. COMPARISON: None. FINDINGS: BRAIN: No parenchymal hemorrhage, midline shift or mass effect. Garcia-white matter differentiation is intact. No acute infarct. No white matter lesions. Ventricles, sulci and basilar cisterns are normal. EXTRA-AXIAL SPACES: No subdural or epidural collections. ORBITS AND PARANASAL SINUSES: Visualized orbits and globes are intact. Visualized paranasal sinuses and mastoid air cells are clear. CALVARIUM AND SOFT TISSUES: The calvarium is intact. No fractures or suspicious bony lesions. The extracranial soft tissues are unremarkable. IMPRESSION: Normal exam. No acute intracranial pathology. Dictated by: Dictated on workstation # [id number]
--- NOTE | 2019-01-31 21:36 | Diagnostic Imaging Report ---
PROCEDURE: CT lumbar spine with and without contrast. TECHNIQUE: Axial images were obtained through the lumbar spine with and without intravenous contrast and reformatted into coronal and sagittal planes. Auto Exposure Controls were utilized during the CT exam to meet ALARA standards for radiation dose reduction. INDICATION: Pain, nausea, vomiting, and fever. COMPARISON: None available. FINDINGS: There is a well-corticated lucency through the right transverse process of the L1 vertebral body, likely representing a normal variant small accessory rib/ossicle. No fracture or acute osseous abnormality is demonstrated. Vertebral body heights are maintained. Spinal alignment is preserved. There is mild intervertebral disc space narrowing, facet arthropathy, and marginal osteophyte formation noted at the L5-S1 level. There is a small broad-based disc bulge at this level and minimal bilateral neuroforaminal narrowing also noted at this level. Otherwise, no significant central canal narrowing or neuroforaminal stenosis at levels above this. No prevertebral or paraspinal soft tissue abnormality is demonstrated. The visualized abdominal viscera are unremarkable. The aorta is nonaneurysmal. IMPRESSION: Mild degenerative change of the lumbar spine at the L5-S1 joint, without evidence of acute fracture or subluxation. Dictated by: Dictated on workstation # [id number]
[2019-01-31] MEDS ORDERED: LACTATED RINGERS 1,000 ML IV SCH (21:45)
[2019-01-31 22:04] LABS: BILIRUBIN,URINE 2+ (NEGATIVE); CLARITY,URINE CLEAR; COLOR,URINE AMBER; GLUCOSE, URINE (UA) NEGATIVE (NEGATIVE); KETONES,URINE 4+ (NEGATIVE); LEUKOCYTE ESTERASE ,URINE 1+ (NEGATIVE); NITRITE,URINE POSITIVE (NEGATIVE); PH,URINE 7 (5-9); PROTEIN,URINE 3+ (NEGATIVE); UROBILINOGEN,URINE 8 MG/DL (NORMAL)
[2019-01-31 22:14] LABS: RBC,URINE 0-2 /HPF
[2019-01-31 22:15] LABS: BACTERIA,URINE MODERATE /HPF; SQUAMOUS EPITHELIAL CELL,UR RARE /HPF; WBC,URINE RARE /HPF
[2019-01-31] MEDS ORDERED: DOXYCYCLINE INJECTION 100 MG in NS (IVPB) 100 ML IV ONE (22:15)
[2019-01-31] MEDS ORDERED: cefTRIAXone FOR IV USE 1,000 MG in WATER (STERILE) FOR INJECTION 10 ML IV ONE (22:15)
[2019-01-31] MEDS ORDERED: fentaNYL INJECTION 100 MCG/2 ML AMP IVP ONE (22:45)
--- OUTSIDE RECORDS SUMMARY | 2019-01-31 22:53 | XMS REPORT | Continuity of Care Document ---
Author Organization Unknown Address Unknown Allergies Active Description Code Type Severity Reaction Onset Reported/Identified Relationship to Patient Clinical Status Yes No Known Drug Allergies [id number] Drug Allergy Unknown N/A 11/15/2018 Yes codiene [...] FREE TEXT ENTRY 2 SEE COMMENTS NRG Complete blood count (CBC) with automated white blood cell (WBC) differential - 01/31/19 20:22 Blood leukocytes automated count (number/volume) 2.8 10*3/uL 4.3-11.0 Blood erythrocytes automated count (number/volume) 4.95 10*6/uL 4.35-5.85 Venous blood hemoglobin measurement (mass/volume) 13.6 g/dL 11.5-16.0 Blood hematocrit (volume fraction) 39 % 35-52 Automated erythrocyte mean corpuscular volume 78 [foz_us] 80-99 Automated erythrocyte mean corpuscular hemoglobin (mass per erythrocyte) 28 pg 25-34 Automated erythrocyte mean corpuscular hemoglobin concentration measurement (mass/volume) 35 g/dL 32-36 Automated erythrocyte distribution width ratio 14.2 % 10.0- 14.5 Automated blood platelet count (count/volume) 120 10*3/uL 130-400 Automated blood platelet mean volume measurement 11.8 [foz_us] 7.4-10.4 Automated blood neutrophils/100 leukocytes 62 % 42-75 Automated blood lymphocytes/100 leukocytes 26 % 12-44 Blood monocytes/100 leukocytes 10 % 0-12 Automated blood eosinophils/100 leukocytes 0 % 0-10 Automated blood basophils/100 leukocytes 3 % 0-10 Blood neutrophils automated count (number/volume) 1.7 10*3 1.8-7.8 Blood lymphocytes automated count (number/volume) 0.7 10*3 1.0-4.0 Blood monocytes automated count (number/volume) 0.3 10*3 0.0- 1.0 Automated eosinophil count 0.0 10*3/uL 0.0-0.3 Automated blood basophil count (count/volume) 0.1 10*3/uL 0.0-0.1 Serum heterophile antibody titer - 01/31/19 20:22 Serum heterophile antibody titer NEGATIVE NEGATIVE Blood lactic acid measurement (moles/volume) - 01/31/19 20:22 Blood lactic acid measurement (moles/volume) 1.51 mmol/L 0.50- 2.00 PT panel in platelet poor plasma by coagulation assay - 01/31/19 20:22 Prothrombin time (PT) in platelet poor plasma by coagulation assay 13.9 s 12.2-14.7 INR in platelet poor plasma or blood by coagulation assay 1.0 0.8-1.4 Activated partial thromboplastin time (aPTT) in platelet poor plasma bycoagulation assay - 01/31/19 20:22 Activated partial thromboplastin time (aPTT) in platelet poor plasma bycoagulation assay 30 s 24-35 Comprehensive metabolic panel - 01/31/19 20:22 Serum or plasma sodium measurement (moles/volume) 135 mmol/L 135-145 Serum or plasma potassium measurement (moles/volume) 3.5 mmol/L 3.6-5.0 Serum or plasma chloride measurement (moles/volume) 100 mmol/L 98-107 Carbon dioxide 20 mmol/L 21-32 Serum or plasma anion gap determination (moles/volume) 15 mmol/L 5-14 Serum or plasma urea nitrogen measurement (mass/volume) 14 mg/dL 7-18 Serum or plasma creatinine measurement (mass/volume) 0.76 mg/dL 0.60-1.30 Serum or plasma urea nitrogen/creatinine mass ratio 18 NRG Serum or plasma creatinine measurement with calculation of estimated glomerular filtration rate > NRG Serum or plasma glucose measurement (mass/volume) 83 mg/dL 70-105 Serum or plasma calcium measurement (mass/volume) 8.7 mg/dL 8.5-10.1 Serum or plasma total bilirubin measurement (mass/volume) 2.9 mg/dL 0.1-1.0 Serum or plasma alkaline phosphatase measurement (enzymatic activity/volume) 348 U/L 40-136 Serum or plasma aspartate aminotransferase measurement (enzymatic activity/volume) 257 U/L 5-34 Serum or plasma alanine aminotransferase measurement (enzymatic activity/volume) 240 U/L 0-55 Serum or plasma protein measurement (mass/volume) 6.5 g/dL 6.4-8.2 Serum or plasma albumin measurement (mass/volume) 3.5 g/dL 3.2-4.5 CALCIUM CORRECTED 9.1 mg/dL 8.5-10.1 Serum or plasma creatine kinase measurement (enzymatic activity/volume) - 01/31/19 20:22 Serum or plasma creatine kinase measurement (enzymatic activity/volume) 33 U/L 29-168 Serum or plasma C reactive protein measurement (mass/volume) - 01/31/19 20:22 Serum or plasma C reactive protein measurement (mass/volume) 9.88 mg/dL 0.00-0.50 Serum or plasma choriogonadotropin ( test) detection - 01/31/19 20:22 Serum or plasma choriogonadotropin ( test) detection NEGATIVE NEGATIVE Erythrocyte sedimentation rate by westergren method - 01/31/19 20:22 Erythrocyte sedimentation rate by westergren method 5 mm 0- 20 Encounters ACCT No. Visit Date/Time Discharge Status Pt. Type Provider Facility Loc./Unit Complaint [id number] 01/04/2019 12:30:00 01/04/2019 23:59:59 [facility] Outpatient KAVEH HENNESSY [facility] [id number] 01/28/2019 19:41:00 01/28/2019 23:37:00 DIS Emergency IVAN MOTLEY, BETZY Seth [facility] ER FS FEVER; GENERAL ACHING; HX GASTRIC SLEEEVE [id number] 11/15/2018 12:54:00 11/15/2018 17:32:00 DIS Emergency THOMAS COMER DO [facility] ER FS TREMORS [id number] 01/31/2019 20:35:00 Document Registration
[2019-01-31 23:09] VITALS: BP 103/59
[2019-01-31 23:15] VITALS: BP 114/68
[2019-01-31 23:20] LABS: LYMPHOCYTES % (MANUAL) 24 %; MONOCYTES % (MANUAL) 14 %; NEUTROPHILS % (MANUAL) 62 %
[2019-01-31 23:30] VITALS: BP 111/64
[2019-01-31] MEDS ORDERED: ONDANSETRON 4 MG/2 ML (SDV) Z0FRAN IV PRN (23:30)
[2019-01-31] MEDS ORDERED: ALPRAZolam 0.5 MG (XANAX) TAB PO PRN (23:30)
[2019-01-31 23:35] LABS: RBC MORPH SEE FOOTNOTE
[2019-01-31 23:45] VITALS: BP 101/49
[2019-02-01] VITALS (15 sets, daily range): BP systolic 95–134; BP diastolic 50–82
[2019-02-01] MEDS: LACTATED RINGERS 1,000 ML IV SCH ×4 (01:09→17:30)
[2019-02-01 03:28] LABS: BASOPHILS # (AUTO) 0.1 10^3/uL (0.0-0.1); BASOPHILS % (AUTO) 2 % (0-10); EOSINOPHILS % (AUTO) 1 % (0-10); HEMATOCRIT 34 % (35-52); LYMPHOCYTES # (AUTO) 0.8 X 10^3 (1.0-4.0); LYMPHOCYTES % (AUTO) 29 % (12-44); MEAN CORPUSCULAR HEMOGLOBIN 28 PG (25-34); MEAN CORPUSCULAR HGB CONC 35 G/DL (32-36); MEAN CORPUSCULAR VOLUME 79 FL (80-99); MEAN PLATELET VOLUME 11.4 FL (7.4-10.4); MONOCYTES # (AUTO) 0.3 X 10^3 (0.0-1.0); MONOCYTES % (AUTO) 11 % (0-12); NEUTROPHILS # (AUTO) 1.5 X 10^3 (1.8-7.8); NEUTROPHILS % (AUTO) 57 % (42-75); PLATELET COUNT 105 10^3/uL (130-400); RED CELL DISTRIBUTION WIDTH 14.1 % (10.0-14.5); WHITE BLOOD COUNT 2.7 10^3/uL (4.3-11.0)
[2019-02-01 03:31] LABS: SMEAR SCAN COMMENT YES
[2019-02-01 03:54] LABS: ALANINE AMINOTRANSFERASE 212 U/L (0-55); ALBUMIN 2.9 GM/DL (3.2-4.5); ALKALINE PHOSPHATASE 287 U/L (40-136); BILIRUBIN,TOTAL 2.2 MG/DL (0.1-1.0); BUN/CREATININE RATIO 21; CALCIUM 8.2 MG/DL (8.5-10.1); CARBON DIOXIDE 21 MMOL/L (21-32); CHLORIDE 103 MMOL/L (98-107); CREATININE SERUM 0.67 MG/DL (0.60-1.30); GFR ESTIMATED > 60; GLUCOSE 78 MG/DL (70-105); MAGNESIUM 1.3 MG/DL (1.8-2.4); PHOSPHORUS 3.2 MG/DL (2.3-4.7); POTASSIUM 3.1 MMOL/L (3.6-5.0); SODIUM 136 MMOL/L (135-145); TOTAL PROTEIN 5.3 GM/DL (6.4-8.2)
[2019-02-01] MEDS: POTASSIUM CL 10MEQ/50ML IVPB 50 ML IV SCH ×4 (05:16→08:34)
[2019-02-01] MEDS: MAGNESIUM 1 GM/100 ML IVPB 100 ML IV SCH ×4 (05:17→08:34)
[2019-02-01] MEDS: IBUPROFEN 600 MG (MOTRIN) TAB PO PRN ×2 (05:18→19:35)
--- NOTE | 2019-02-01 05:52 | Pulmonary Consultation ---
History of Present Illness History of Present Illness Date of Consultation 02/01/19 05:46 Time Seen by Provider: 05:46 Date of Admission History of Present Illness 34yo with hx of gastric sleeve presented to ED secondary to worsening N/V that started on Wednesday. Denies diarrhea. She complains of generalized body aches including GRIMALDO. Denies abdominal pain. UDS was ordered in ED however was cancelled by label cutter. Temp at home was 101-105. Denies CP, SOB. While in the ED she was found to have elevated LFTs and decreased WBC, and platelets. Denies drug use. Allergies and Home Medications Allergies Uncoded Allergies: aura (Allergy, Unknown, 01/28/19) Home Medications Multivitamin 1 Each Tablet, 1 TAB PO DAILY, (Reported) Omeprazole 20 Mg Capsule.dr, 20 MG PO DAILY, (Reported) Past Ldkbbak-Wckojk-Mztwhk Hx Patient Social History Alcohol Use: Denies Use Recreational Drug Use: Yes Drug of Choice: marijuana Smoking Status: Never a Smoker 2nd Hand Smoke Exposure: Yes Recent Foreign Travel: No Contact w/Someone Who Travel: No Recent Infectious Disease Expo: No Recent Hopitalizations: No Physical Abuse: No Sexual Abuse: No Mistreated: No Fear: No Seasonal Allergies Seasonal Allergies: No Past Medical History Surgeries: Yes (gastric surgery 2017) Respiratory: No Cardiac: No Neurological: No : Yes Genitourinary: No Gastrointestinal: No Musculoskeletal: No Endocrine: No HEENT: No Cancer: No Psychosocial: No Blood Disorders: No Review of Systems Time Seen by Provider: 07:32 Constitutional: Fever, Chills, Sweats, Weakness, Malaise, Other Eyes: No: Pain, Vision change, Conjunctivae inflammation, Eyelid inflammation, Other, Redness ENT: Nose congestion; No: Ear pain, Ear discharge, Nose pain, Nose discharge, Mouth pain, Mouth swelling, Throat pain, Throat swelling, Other Respiratory: No: Cough, Dry, Shortness of breath, SOB with excertion, Wheezing, Hemoptysis, Pleuritic Pain, Sputum, Wheezing, Other Cardiovascular: No: Chest Pain, Palpitations, Orthopnea, Paroxysmal Noc. Dyspnea, Edema, Lt Headedness, Other Gastrointestinal: Nausea, Vomiting; No: Abdominal Pain, Diarrhea, Constipation, Hematochezia Genitourinary: No Dysuria, No Frequency, No Incontinence, No Hematuria, No Retention, No Other Neurological: Weakness; No: Incoordination, Change in speech, Confusion Sepsis Event Evaluation Height, Weight, BMI Height: 5'7.00" Weight: 193lbs. 0.8oz. 87.776110qz; 30.2 BMI Method:Stated Exam Exam Vital Signs Date Time Temp Pulse Resp B/P (MAP) Pulse Ox O2 Delivery O2 Flow Rate FiO2 02/01/19 05:00 85 22 122/79 (93) 97 Room Air 02/01/19 04:00 78 22 128/66 (86) 97 Room Air 02/01/19 03:00 77 25 110/71 (84) 95 Room Air 02/01/19 02:00 78 28 113/72 (86) 95 Room Air 02/01/19 01:30 80 17 116/73 (87) 96 Room Air 02/01/19 01:00 80 02/01/19 01:00 80 17 132/63 (86) 96 Room Air 02/01/19 00:30 81 21 104/58 (73) 96 Room Air 02/01/19 00:00 97 Nasal Cannula 02/01/19 00:00 77 19 103/50 (67) 97 Room Air 01/31/19 23:59 Nasal Cannula 01/31/19 23:45 76 18 101/49 (66) 98 Room Air 01/31/19 23:30 79 13 111/64 (80) 97 Room Air 01/31/19 23:15 76 18 114/68 (83) 98 Room Air 01/31/19 23:10 66 01/31/19 23:09 97.6 80 12 103/59 (74) 99 Room Air 01/31/19 22:52 99.3 91 18 110/71 (84) 99 Room Air 01/31/19 20:31 99.3 91 18 110/71 (84) 01/31/19 20:30 99 Room Air 01/31/19 20:10 99.3 91 18 110/71 (84) I & O 02/01/19 07:00 Intake Total 1160 ml Balance 1160 ml Height & Weight Height: 5'7.00" Weight: 193lbs. 0.8oz. 87.616913lf; 30.2 BMI Method:Stated General Appearance: No Apparent Distress, WD/WN, Other (hirsutism noted.) HEENT: PERRL/EOMI, TMs Normal, Normal ENT Inspection Neck: Full Range of Motion (she is able to flex her chin all the way to her c hest without any neck pain. There is no nuchal rigidity), Normal Inspection, Other (mild posterior cervical chain adenopathy bilaterally) Respiratory: No Accessory Muscle Use, No Respiratory Distress Cardiovascular: Regular Rate, Rhythm, Normal Peripheral Pulses Capillary Refill: Less Than 3 Seconds Extremity: Normal Capillary Refill, Normal Inspection Neurologic/Psychiatric: Alert, Oriented x3 Skin: Normal Color, Warm/Dry, Other (no rash or lesions are identified) Results Lab Laboratory Tests 01/31/19 20:22 02/01/19 03:20 Assessment/Plan Assessment/Plan acute hepatitis -Check hepatitis panel -Tyler is neg -CHeck UDS - Initial order was D/c'd by label cutter. -Abd US pending Leukopenia -Monitor -Check viral panel -Montelongo cultures pending Thrombocypenia -Peripheral spear pending -Tick panel pending - Pt denies any recent tick bites or exposure CHARLENE SERRANO DO Feb 01, 2019 05:52
[2019-02-01] MEDS ORDERED: POTASSIUM CL 10MEQ/50ML IVPB 50 ML IV SCH (06:00)
[2019-02-01] MEDS ORDERED: MAGNESIUM 1 GM/100 ML IVPB 100 ML IV SCH (06:00)
[2019-02-01] MEDS ORDERED: KCL 20 MEQ TAB (K-DUR) PO SCH (06:00)
[2019-02-01 06:57] LABS: AMPHETAMINE SCREEN, URINE NEGATIVE (NEGATIVE); BARBITURATE SCREEN URINE NEGATIVE (NEGATIVE); BENZODIAZEPINES SCREEN URINE POSITIVE (NEGATIVE); CANNABINOID SCREEN, URINE POSITIVE (NEGATIVE); COCAINE SCREEN URINE NEGATIVE (NEGATIVE); METHADONE STAT NEGATIVE (NEGATIVE); METHAMPHETAMINE SCREEN URINE S NEGATIVE (NEGATIVE); OPIATE SCREEN URINE NEGATIVE (NEGATIVE); OXYCODONE STAT NEGATIVE (NEGATIVE); PROPOXYPHENE STAT NEGATIVE (NEGATIVE); TRICYCLIC ANTIDEPRESSANTS SCRE POSITIVE (NEGATIVE)
--- NOTE | 2019-02-01 08:37 | NUR ---
PT TRANSFERRED TO ROOM 425 VIA W/ STAFF/PERSONAL BELONGINGS. REPORT GIVEN TO TYREE DIAZ, NO QUESTIONS/CONCERNS VOICED.
--- NOTE | 2019-02-01 08:40 | Diagnostic Imaging Report ---
Indication: Leukopenia, thrombocytopenia, malaise. Findings: Lungs are clear. The heart and vessels normal. There is no effusion or pneumothorax. Impression: No acute-appearing abnormality. Dictated by: Dictated on workstation # [id number]
[2019-02-01] MEDS: DOXYCYCLINE INJECTION 100 MG in NS (IVPB) 100 ML IV SCH ×2 (09:15→21:01)
--- NOTE | 2019-02-01 09:27 | History & Physical-Hospitalist ---
History of Present Illness Source: patient Exam Limitations: no limitations Date Seen 02/01/19 Time Seen by a Provider: 09:30 Attending Physician Luis Enrique Chatterjee MD PCP Brian Perez MD Referring Physician Date of Admission Jan 31, 2019 at 20:43 Home Medications & Allergies Home Medications Reviewed patient Home Medication Reconciliation performed by pharmacy medication reconciliations lay out technician and/or nursing. Patients Allergies have been reviewed. Allergies Allergies Uncoded Allergies codiene ( Allergy, Unknown, 01/28/19) Past Eqylioc-Jtiker-Hrdgsu Hx Patient Social History Alcohol Use: Denies Use Recreational Drug Use: Yes Drug of Choice: marijuana Smoking Status: Never a Smoker 2nd Hand Smoke Exposure: Yes Recent Foreign Travel: No Contact w/other who traveled: No Recent Hopitalizations: No Recent Infectious Disease Expo: No Seasonal Allergies Seasonal Allergies: No Past Medical History : Yes History of Blood Disorders: No Physical Exam Physical Exam Vital Signs Vital Signs - First Documented 01/31/19 01/31/19 20:10 20:30 Temp 99.3 Pulse 91 Resp 18 B/P (MAP) 110/71 (84) Pulse Ox 99 O2 Delivery Room Air Capillary Refill : Less Than 3 Seconds Height, Weight, BMI Height: 5'7.00" Weight: 193lbs. 0.8oz. 87.415740gf; 30.2 BMI Method:Stated Results Results/Procedures Labs Laboratory Tests 01/31/19 20:22 02/01/19 03:20 Patient resulted labs reviewed. Clinical Quality Measures DVT/VTE Risk/Contraindication: Risk Factor Score Per Nursin RFS Level Per Nursing on Admit: 0=No Risk/No VTE PPX SHERIDAN BALL DO Feb 01, 2019 09:27
--- NOTE | 2019-02-01 09:27 | Diagnostic Imaging Report ---
PROCEDURE: US Gallbladder. TECHNIQUE: Multiple real-time grayscale images were obtained over the right upper quadrant in various projections. INDICATION: Elevated liver function tests with leukopenia and thrombocytopenia FINDINGS: Grayscale imaging of the gallbladder reveals no intraluminal filling defect. There is no gallbladder wall thickening or pericholecystic fluid. No intra or extrahepatic biliary ductal dilatation is identified. No pancreatic, right renal, abdominal aortic or inferior vena caval abnormality is documented. No ascites was noted. IMPRESSION: Unremarkable gallbladder ultrasound. Dictated by: Dictated on workstation # [id number]
[2019-02-01] MEDS ORDERED: OMEP20CA12 PO (09:29)
--- NOTE | 2019-02-01 09:30 | NUR ---
PATIENT STATES SHE TAKES OMEPRAZOLE DAILY. SHE WAS PRESCRIBED FLEXERIL IN THE FS ED HOWEVER SHE DOES NOT FEEL IT HELPED AND STOPPED TAKING IT. SHE STATES SHE ALSO TAKES A MTV DAILY WHEN SHE REMEMBERS.
[2019-02-01] MEDS ORDERED: MULT1TAB69 PO (09:31)
[2019-02-01 10:33] LABS: WHITE BLOOD COUNT 2.8 10^3/uL (4.3-11.0)
[2019-02-01] MEDS ORDERED: PANTOPRAZOLE 20 MG TABLET (PROTONIX) PO ONE (12:19)
[2019-02-01] MEDS ORDERED: LORATADINE (CLARITIN) 10 MG TAB ONE (16:14)
--- NOTE | 2019-02-01 20:41 | History & Physical ---
HPI History of Present Illness: 34 yo female started feeling sick about a week ago with fever and pain in various areas. She has had headache, nausea at times, pain in hands, hips, neck, shooting pains in legs. She denies rash, tick exposure, has not been camping or travelled. She has felt short of breath at times. Source: patient, family Date seen by provider: Feb 01, 2019 Time Seen by Provider: 11:50 Attending Physician Zeferino Rosa MD PCP Self,Brian MOTLEY Consult Date of Admission Jan 31, 2019 at 20:43 Home Medications Home Medications Reviewed patient Home Medication Reconciliation performed by pharmacy medication reconciliations registered dietetic technician and/or nursing. Patients Allergies have been reviewed. Allergies Uncoded Allergies: codiene (Allergy, Unknown, 01/28/19) [id number] Hx Patient Social History Alcohol Use: Denies Use Recreational Drug Use: Yes Drug of Choice: marijuana Smoking Status: Never a Smoker 2nd Hand Smoke Exposure: Yes Recent Foreign Travel: No Contact w/other who traveled: No Recent Hopitalizations: No Recent Infectious Disease Expo: No Past Medical History PMHx: GERD Family Medical History Significant Family History: No Pertinent Family Hx Review of Systems ([facility]C) Constitutional: fever, malaise EENTM: No nose congestion, No throat pain Respiratory: short of breath Cardiovascular: chest pain Gastrointestinal: No abdominal pain, No constipation, No diarrhea; nausea Genitourinary: No dysuria Musculoskeletal: see HPI Skin: No rash Psychiatric/Neurological: Denies Anxiety, Denies Depressed Reviewed Test Results Reviewed Test Results Lab Laboratory Tests Test 01/31/19 20:22 01/31/19 20:53 01/31/19 21:57 02/01/19 00:35 Range/Units White Blood Count 2.8 L 4.3-11.0 10^3/uL Red Blood Count 4.95 4.35-5.85 10^6/uL Hemoglobin 13.6 11.5-16.0 G/DL Hematocrit 39 35-52 % Mean Corpuscular Volume 78 L 80-99 FL Mean Corpuscular Hemoglobin 28 25-34 PG Mean Corpuscular Hemoglobin Concent 35 32-36 G/DL Red Cell Distribution Width 14.2 10.0-14.5 % Platelet Count 120 L 130-400 10^3/uL Mean Platelet Volume 11.8 H 7.4-10.4 FL Neutrophils (%) (Auto) 62 42-75 % Lymphocytes (%) (Auto) 26 12-44 % Monocytes (%) (Auto) 10 0-12 % Eosinophils (%) (Auto) 0 0-10 % Basophils (%) (Auto) 3 0-10 % Neutrophils # (Auto) 1.7 L 1.8-7.8 X 10^3 Lymphocytes # (Auto) 0.7 L 1.0-4.0 X 10^3 Monocytes # (Auto) 0.3 0.0-1.0 X 10^3 Eosinophils # (Auto) 0.0 0.0-0.3 10^3/uL Basophils # (Auto) 0.1 0.0-0.1 10^3/uL Neutrophils % (Manual) 62 % Lymphocytes % (Manual) 24 % Monocytes % (Manual) 14 % Blood Morphology Comment SEE FOOTNOTE Erythrocyte Sedimentation Rate 5 0-20 MM/HR Prothrombin Time 13.9 12.2-14.7 SEC INR Comment 1.0 0.8-1.4 Activated Partial Thromboplast Time 30 24-35 SEC Sodium Level 135 135-145 MMOL/L Potassium Level 3.5 L 3.6-5.0 MMOL/L Chloride Level 100 98-107 MMOL/L Carbon Dioxide Level 20 L 21-32 MMOL/L Anion Gap 15 H 5-14 MMOL/L Blood Urea Nitrogen 14 7-18 MG/DL Creatinine 0.76 0.60-1.30 MG/DL Estimat Glomerular Filtration Rate > 60 BUN/Creatinine Ratio 18 Glucose Level 83 70-105 MG/DL Lactic Acid Level 1.51 0.50-2.00 MMOL/L Calcium Level 8.7 8.5-10.1 MG/DL Corrected Calcium 9.1 8.5-10.1 MG/DL Total Bilirubin 2.9 H 0.1-1.0 MG/DL Aspartate Amino Transf (AST/SGOT) 257 H 5-34 U/L Alanine Aminotransferase (ALT/SGPT) 240 H 0-55 U/L Alkaline Phosphatase 348 H 40-136 U/L Total Creatine Kinase 33 29-168 U/L C-Reactive Protein High Sensitivity 9.88 H 0.00-0.50 MG/DL Total Protein 6.5 6.4-8.2 GM/DL Albumin 3.5 3.2-4.5 GM/DL Lipase 7 L 8-78 U/L Serum Test, Qualitative NEGATIVE NEGATIVE Monoscreen NEGATIVE NEGATIVE Urine Color MARIA ESTHER H Urine Clarity CLEAR Urine pH 7 5-9 Urine Specific Gordon 1.005 L 1.016-1.022 Urine Protein 3+ H NEGATIVE Urine Glucose (UA) NEGATIVE NEGATIVE Urine Ketones 4+ H NEGATIVE Urine Nitrite POSITIVE H NEGATIVE Urine Bilirubin 2+ H NEGATIVE Urine Urobilinogen 8 H NORMAL MG/DL Urine Leukocyte Esterase 1+ H NEGATIVE Urine RBC (Auto) 4+ H NEGATIVE Urine RBC 0-2 /HPF Urine WBC RARE /HPF Urine Squamous Epithelial Cells RARE /HPF Urine Crystals NONE /LPF Urine Bacteria MODERATE H /HPF Urine Casts NONE /LPF Urine Mucus NEGATIVE /LPF Urine Culture Indicated CULTURE PENDING Urine Opiates Screen NEGATIVE NEGATIVE Urine Oxycodone Screen NEGATIVE NEGATIVE Urine Methadone Screen NEGATIVE NEGATIVE Urine Propoxyphene Screen NEGATIVE NEGATIVE Urine Barbiturates Screen NEGATIVE NEGATIVE Ur Tricyclic Antidepressants Screen POSITIVE H NEGATIVE Urine Phencyclidine Screen NEGATIVE NEGATIVE Urine Amphetamines Screen NEGATIVE NEGATIVE Urine Methamphetamines Screen NEGATIVE NEGATIVE Urine Benzodiazepines Screen POSITIVE H NEGATIVE Urine Cocaine Screen NEGATIVE NEGATIVE Urine Cannabinoids Screen POSITIVE H NEGATIVE Test 02/01/19 03:20 Range/Units White Blood Count 2.7 L 4.3-11.0 10^3/uL Red Blood Count 4.34 L 4.35-5.85 10^6/uL Hemoglobin 12.0 11.5-16.0 G/DL Hematocrit 34 L 35-52 % Mean Corpuscular Volume 79 L 80-99 FL Mean Corpuscular Hemoglobin 28 25-34 PG Mean Corpuscular Hemoglobin Concent 35 32-36 G/DL Red Cell Distribution Width 14.1 10.0-14.5 % Platelet Count 105 L 130-400 10^3/uL Mean Platelet Volume 11.4 H 7.4-10.4 FL Neutrophils (%) (Auto) 57 42-75 % Lymphocytes (%) (Auto) 29 12-44 % Monocytes (%) (Auto) 11 0-12 % Eosinophils (%) (Auto) 1 0-10 % Basophils (%) (Auto) 2 0-10 % Neutrophils # (Auto) 1.5 L 1.8-7.8 X 10^3 Lymphocytes # (Auto) 0.8 L 1.0-4.0 X 10^3 Monocytes # (Auto) 0.3 0.0-1.0 X 10^3 Eosinophils # (Auto) 0.0 0.0-0.3 10^3/uL Basophils # (Auto) 0.1 0.0-0.1 10^3/uL Sodium Level 136 135-145 MMOL/L Potassium Level 3.1 L 3.6-5.0 MMOL/L Chloride Level 103 98-107 MMOL/L Carbon Dioxide Level 21 21-32 MMOL/L Anion Gap 12 5-14 MMOL/L Blood Urea Nitrogen 14 7-18 MG/DL Creatinine 0.67 0.60-1.30 MG/DL Estimat Glomerular Filtration Rate > 60 BUN/Creatinine Ratio 21 Glucose Level 78 70-105 MG/DL Calcium Level 8.2 L 8.5-10.1 MG/DL Corrected Calcium 9.1 8.5-10.1 MG/DL Phosphorus Level 3.2 2.3-4.7 MG/DL Magnesium Level 1.3 L 1.8-2.4 MG/DL Total Bilirubin 2.2 H 0.1-1.0 MG/DL Aspartate Amino Transf (AST/SGOT) 213 H 5-34 U/L Alanine Aminotransferase (ALT/SGPT) 212 H 0-55 U/L Alkaline Phosphatase 287 H 40-136 U/L Total Protein 5.3 L 6.4-8.2 GM/DL Albumin 2.9 L 3.2-4.5 GM/DL Monoscreen NEGATIVE NEGATIVE Smear Scan YES Radiology CXR 01/31 no acute findings Head CT 01/31 no acute findings Lumbar spine CT 01/31 IMPRESSION: Mild degenerative change of the lumbar spine at the L5-S1 joint, without evidence of acute fracture or subluxation. GB US 02/01 normal Physical Exam-([facility]) Physical Exam Vital Signs VS - Last 72 Hours, by Label 01/31/19 01/31/19 01/31/19 01/31/19 20:10 20:30 20:31 22:52 Temp 99.3 99.3 99.3 Pulse 91 91 91 Resp 18 18 18 B/P (MAP) 110/71 (84) 110/71 (84) 110/71 (84) Pulse Ox 99 99 O2 Delivery Room Air Room Air 01/31/19 01/31/19 01/31/19 01/31/19 23:09 23:10 23:15 23:30 Temp 97.6 Pulse 80 66 76 79 Resp 12 18 13 B/P (MAP) 103/59 (74) 114/68 (83) 111/64 (80) Pulse Ox 99 98 97 O2 Delivery Room Air Room Air Room Air 01/31/19 01/31/19 02/01/19 02/01/19 23:45 23:59 00:00 00:00 Pulse 76 77 Resp 18 19 B/P (MAP) 101/49 (66) 103/50 (67) Pulse Ox 98 97 97 O2 Delivery Room Air Nasal Cannula Room Air Nasal Cannula 02/01/19 02/01/19 02/01/19 02/01/19 00:30 01:00 01:00 01:30 Pulse 81 80 80 80 Resp 21 17 17 B/P (MAP) 104/58 (73) 132/63 (86) 116/73 (87) Pulse Ox 96 96 96 O2 Delivery Room Air Room Air Room Air 02/01/19 02/01/19 02/01/19 02/01/19 02:00 03:00 04:00 04:00 Pulse 78 77 78 Resp 28 25 22 B/P (MAP) 113/72 (86) 110/71 (84) 128/66 (86) Pulse Ox 95 95 97 97 O2 Delivery Room Air Room Air Nasal Cannula Room Air 02/01/19 02/01/19 02/01/19 02/01/19 05:00 06:00 07:00 07:00 Pulse 85 81 72 72 Resp 22 22 15 B/P (MAP) 122/79 (93) 131/72 (91) 134/82 (99) Pulse Ox 97 93 96 O2 Delivery Room Air Room Air Room Air 02/01/19 02/01/19 02/01/19 02/01/19 08:00 08:04 08:07 09:11 Temp 96.2 96.5 Pulse 72 73 Resp 16 20 B/P (MAP) 111/68 (82) 102/62 (75) Pulse Ox 95 94 97 O2 Delivery Room Air Nasal Cannula Room Air 02/01/19 02/01/19 02/01/19 02/01/19 12:00 12:00 13:00 15:30 Temp 97.8 97.9 Pulse 80 88 90 Resp 20 20 B/P (MAP) 99/66 (77) 95/62 (73) Pulse Ox 98 94 100 O2 Delivery Room Air Room Air Room Air 02/01/19 02/01/19 19:00 20:14 Pulse 93 O2 Delivery Room Air Capillary Refill : Less Than 3 Seconds General Appearance: WD/WN, no apparent distress HEENT: PERRL/EOMI, pharynx normal Neck: full range of motion, supple Respiratory: lungs clear, normal breath sounds Cardiovascular: regular rate, rhythm, no murmur Gastrointestinal: normal bowel sounds, non tender, soft, no organomegaly Extremities: no pedal edema Neurologic/Psychiatric: drier unloader II-XII nml as tested, alert, normal mood/affect; No abnormal cerebellar tests, No motor weakness Skin: normal color, warm/dry Assessment/Plan Assessment/Plan Admission Status: Inpatient Order (span 2 midnights) Reason for Inpatient Admission: Febrile illness with hepatitis and blood count abnormalities, anticipate 2 nights at least of abx and evaluation (1) Babesiosis Status: Acute Assessment & Plan: Suspect babesiosis based on smear with parasites seen consistent with babesia vs malaria, no known exposure to either, but babesia more likely in this area. Start clindamycin and quinine. Given concern for other possible tick born illness with serologies pending, will continue doxyxycline as well. (2) Elevated LFTs Status: Acute Assessment & Plan: GB US okay, hepatitis panel pending, HIV pending, tick panel pending (3) Leukopenia Status: Acute Assessment & Plan: Suspect secondary to viral vs tick borne illness. Multiple infectious panels pending. Qualifiers: Qualified Codes: D72.819 - Decreased white blood cell count, unspecified (4) Thrombocytopenia Status: Acute Assessment & Plan: Suspect secondary to infection, monitor. (5) DVT prophylaxis Status: Acute Assessment & Plan: Low risk, ambulate Clinical Quality Measures DVT/VTE Risk/Contraindication: Risk Factor Score Per Nursin RFS Level Per Nursing on Admit: 0=No Risk/No VTE PPX ZEFERINO ROSA MD Feb 01, 2019 20:41
[2019-02-01] MEDS ORDERED: CLINDAMYCIN 150 MG (CLEOCIN) CAP PO ONE (20:50)
[2019-02-01] MEDS ORDERED: cefTRIAXone 1,000 MG/SWFI 10 ML IV PUSH IV SCH ×2 (21:00)
[2019-02-01] MEDS: CLINDAMYCIN 150 MG (CLEOCIN) CAP PO SCH (21:01)
--- NOTE | 2019-02-01 21:12 | NUR ---
QUALAQUIN ORDERED FOR THIS PT IS NOT AVAILABLE. HOUSE SUP NOTIFIED. [employer] OWNER CALLED PHARMACY. PHARMACY INFORMED THIS MEDICATION IS NOT STOCKED AT HOSPITAL AND WOULD HAVE TO BE ORDER FROM SOMEWHERE ELSE. DR. US NOTIFIED OF MEDICATION UNAVAILABILITY. SHE STATES UNDERSTANDING AND INFORMED THIS RN ATOVAQUONE COULD BE USED A SUBSTITUTE. THIS RN WILL INFORMED PHARMACY IN THE AM.
[2019-02-01] MEDS: QUININE SULF PO SCH (21:33)
[2019-02-02] VITALS (7 sets, daily range): BP systolic 97–116; BP diastolic 58–71
[2019-02-02] MEDS: LACTATED RINGERS 1,000 ML IV SCH ×3 (00:10→16:16)
[2019-02-02] MEDS: CLINDAMYCIN 150 MG (CLEOCIN) CAP PO SCH ×3 (05:04→20:09)
[2019-02-02] MEDS: IBUPROFEN 600 MG (MOTRIN) TAB PO PRN (05:05)
[2019-02-02] MEDS: PANTOPRAZOLE 20 MG TABLET (PROTONIX) PO SCH ×2 (05:05→07:55)
[2019-02-02] MEDS: LORATADINE (CLARITIN) 10 MG TAB PO SCH ×2 (05:05→07:55)
[2019-02-02 06:33] LABS: BASOPHILS % (AUTO) 1 % (0-10); EOSINOPHILS # (AUTO) 0.1 10^3/uL (0.0-0.3); EOSINOPHILS % (AUTO) 2 % (0-10); HEMATOCRIT 34 % (35-52); HEMOGLOBIN 11.6 G/DL (11.5-16.0); LYMPHOCYTES # (AUTO) 1.1 X 10^3 (1.0-4.0); LYMPHOCYTES % (AUTO) 34 % (12-44); MEAN CORPUSCULAR HEMOGLOBIN 27 PG (25-34); MEAN CORPUSCULAR HGB CONC 34 G/DL (32-36); MEAN CORPUSCULAR VOLUME 80 FL (80-99); MEAN PLATELET VOLUME 11.9 FL (7.4-10.4); MONOCYTES # (AUTO) 0.5 X 10^3 (0.0-1.0); MONOCYTES % (AUTO) 14 % (0-12); NEUTROPHILS # (AUTO) 1.6 X 10^3 (1.8-7.8); NEUTROPHILS % (AUTO) 49 % (42-75); PLATELET COUNT 116 10^3/uL (130-400); RED CELL DISTRIBUTION WIDTH 14.6 % (10.0-14.5); WHITE BLOOD COUNT 3.2 10^3/uL (4.3-11.0)
[2019-02-02 06:45] LABS: HEPATITIS C ANTIBODY C Non-Reactive (Non-Reactive)
[2019-02-02 06:56] LABS: ALANINE AMINOTRANSFERASE 406 U/L (0-55); ALBUMIN 2.8 GM/DL (3.2-4.5); ALKALINE PHOSPHATASE 341 U/L (40-136); BILIRUBIN,TOTAL 2.7 MG/DL (0.1-1.0); BUN/CREATININE RATIO 16; CARBON DIOXIDE 22 MMOL/L (21-32); CHLORIDE 106 MMOL/L (98-107); CREATININE SERUM 0.58 MG/DL (0.60-1.30); GFR ESTIMATED > 60; GLUCOSE 74 MG/DL (70-105); POTASSIUM 3.5 MMOL/L (3.6-5.0); SODIUM 137 MMOL/L (135-145); TOTAL PROTEIN 5.1 GM/DL (6.4-8.2)
[2019-02-02] MEDS: QUININE SULF PO SCH ×3 (07:49→22:37)
[2019-02-02] MEDS: DOXYCYCLINE INJECTION 100 MG in NS (IVPB) 100 ML IV SCH (07:52)
[2019-02-02] MEDS ORDERED: KCL 20 MEQ TAB (K-DUR) PO NR (08:30)
--- NOTE | 2019-02-02 09:31 | Pulmonary Progress Note ---
Subjective Time Seen by a Provider: 09:30 Subjective/Events-last exam Pt feels improved. Sepsis Event Evaluation Height, Weight, BMI Height: 5'7.00" Weight: 199lbs. 1.0oz. 90.152284hs; 30.2 BMI Method:Stated Focused Exam Lactate Level 01/31/19 20:22: Lactic Acid Level 1.51 Exam Exam Vital Signs Date Time Temp Pulse Resp B/P (MAP) Pulse Ox O2 Delivery O2 Flow Rate FiO2 02/02/19 08:00 97.2 69 18 100/66 (77) 96 Room Air 02/02/19 07:00 75 02/02/19 04:00 98.6 61 18 100/66 (77) 96 Room Air 02/02/19 01:00 77 02/02/19 00:00 97.2 69 18 97/62 (74) 93 Room Air 02/01/19 20:14 Room Air 02/01/19 19:25 99.5 89 20 106/65 (79) 99 Room Air 02/01/19 19:00 93 02/01/19 15:30 97.9 90 20 95/62 (73) 100 Room Air 02/01/19 13:00 88 02/01/19 12:00 94 Room Air 02/01/19 12:00 97.8 80 20 99/66 (77) 98 Room Air I & O 02/02/19 07:00 Intake Total 2280 ml Output Total 500 ml Balance 1780 ml Height & Weight Height: 5'7.00" Weight: 199lbs. 1.0oz. 90.952269lo; 30.2 BMI Method:Stated General Appearance: No Apparent Distress, WD/WN, Other (hirsutism noted.) HEENT: PERRL/EOMI, TMs Normal, Normal ENT Inspection Neck: Full Range of Motion (she is able to flex her chin all the way to her chest without any neck pain. There is no nuchal rigidity), Normal Inspection, Other (mild posterior cervical chain adenopathy bilaterally) Respiratory: No Accessory Muscle Use, No Respiratory Distress Cardiovascular: Regular Rate, Rhythm, Normal Peripheral Pulses Capillary Refill: Less Than 3 Seconds Gastrointestinal: normal bowel sounds, non tender, soft, no organomegaly Extremity: Normal Capillary Refill, Normal Inspection Neurologic/Psychiatric: Alert, Oriented x3 Skin: Normal Color, Warm/Dry, Other (no rash or lesions are identified) Results Lab Laboratory Tests 01/31/19 20:22 02/01/19 03:20 02/02/19 05:30 02/02/19 05:32 Assessment/Plan Assessment/Plan acute hepatitis -hepatitis panel is negative -[place] is neg -Abd US - is negative -Tick panel pending - Pt denies any recent tick bites or exposure -Continue Doxy Leukopenia -Monitor -Check viral panel -Montelongo cultures pending Thrombocypenia -Peripheral spear pending CHARLENE SERRANO DO Feb 02, 2019 09:31
--- NOTE | 2019-02-02 18:40 | Progress Note ---
Subjective Subjective/Events-last exam Afebrile, shooting pains in legs better, headache improved after starting claritin. Still feeling nauseated, vomited last night, has tolerated some clear liquids today. Focused Exam Lactate Level 01/31/19 20:22: Lactic Acid Level 1.51 Objective Exam Last Set of Vital Signs Vital Signs Date Time Temp Pulse Resp B/P (MAP) Pulse Ox O2 Delivery O2 Flow Rate FiO2 02/02/19 13:00 71 02/02/19 12:00 97.4 18 109/71 (84) 100 Room Air Capillary Refill : Less Than 3 Seconds I&O Intake and Output 02/02/19 00:00 Intake Total 3430 ml Output Total 850 ml Balance 2580 ml Intake Oral 830 ml IV Total 2600 ml Output Urine Total 850 ml # Voids 2 General: Alert, No Acute Distress Lungs: Clear to Auscultation, Normal Air Movement Heart: Regular Rate, No Murmurs Psych/Mental Status: Mental Status NL, Mood NL Results/Procedures Lab Laboratory Tests 02/02/19 05:30: Sodium Level 137, Potassium Level 3.5L, Chloride Level 106, Carbon Dioxide Level 22, Anion Gap 9, Blood Urea Nitrogen 9, Creatinine 0.58L, Estimat Glomerular Filtration Rate > 60, BUN/Creatinine Ratio 16, Glucose Level 74, Calcium Level 8.0L, Corrected Calcium 9.0, Total Bilirubin 2.7H, Aspartate Amino Transf (AST/SGOT) 476H, Alanine Aminotransferase (ALT/SGPT) 406H, Alkaline Phosphatase 341H, Total Protein 5.1L, Albumin 2.8L 02/02/19 05:32: White Blood Count 3.2L, Red Blood Count 4.26L, Hemoglobin 11.6, Hematocrit 34L, Mean Corpuscular Volume 80, Mean Corpuscular Hemoglobin 27, Mean Corpuscular Hemoglobin Concent 34, Red Cell Distribution Width 14.6H, Platelet Count 116L, Mean Platelet Volume 11.9H, Neutrophils (%) (Auto) 49, Lymphocytes (%) (Auto) 34, Monocytes (%) (Auto) 14H, Eosinophils (%) (Auto) 2, Basophils (%) (Auto) 1, Neutrophils # (Auto) 1.6L, Lymphocytes # (Auto) 1.1, Monocytes # (Auto) 0.5, Eosinophils # (Auto) 0.1, Basophils # (Auto) 0.0 Microbiology 01/31/19 Blood Culture - Preliminary, Resulted No growth 01/31/19 MRSA Screen - Final, Complete MRSA not isolated 01/31/19 Urine Culture - Final, Complete 3 or more isolates Radiology CXR 01/31 no acute findings Head CT 01/31 no acute findings Lumbar spine CT 01/31 IMPRESSION: Mild degenerative change of the lumbar spine at the L5-S1 joint, without evidence of acute fracture or subluxation. US 02/01 normal Assessment/Plan Assessment/Plan (1) Babesiosis Status: Acute Assessment & Plan: Suspect babesiosis based on smear with parasites seen consistent with babesia vs malaria, no known exposure to either, but babesia more likely in this area. Start clindamycin and quinine. Given concern for other possible tick born illness with serologies pending, will continue doxyxycline as well. (2) Elevated LFTs Status: Acute Assessment & Plan: US okay, hepatitis panel pending, HIV pending, tick panel pending 02/02 Hep A/B/C neg, lyme and tularemia neg. Strep pneumo and Legionella neg. Respiratory viral panel, E chafeensis and RMSF pending. (3) Leukopenia Status: Acute Assessment & Plan: Suspect secondary to viral vs tick borne illness. Multiple infectious panels pending. Qualifiers: Qualified Codes: D72.819 - Decreased white blood cell count, unspecified (4) Thrombocytopenia Status: Acute Assessment & Plan: Suspect secondary to infection, monitor. (5) DVT prophylaxis Status: Acute Assessment & Plan: Low risk, ambulate Clinical Quality Measures DVT/VTE Risk/Contraindication: Risk Factor Score Per Nursin RFS Level Per Nursing on Admit: 0=No Risk/No VTE PPX ZEFERINO US MD Feb 02, 2019 18:40
[2019-02-03] MEDS ORDERED: ONDANSETRON 4 MG (ZOFRAN) ORAL DISSOLVE TAB PO PRN (00:45)
[2019-02-03 04:00] VITALS: BP 111/66
[2019-02-03] MEDS: CLINDAMYCIN 150 MG (CLEOCIN) CAP PO SCH (04:22)
[2019-02-03 05:59] LABS: BASOPHILS % (AUTO) 0 % (0-10); EOSINOPHILS # (AUTO) 0.1 10^3/uL (0.0-0.3); EOSINOPHILS % (AUTO) 1 % (0-10); HEMATOCRIT 32 % (35-52); HEMOGLOBIN 11.1 G/DL (11.5-16.0); LYMPHOCYTES # (AUTO) 1.7 X 10^3 (1.0-4.0); LYMPHOCYTES % (AUTO) 33 % (12-44); MEAN CORPUSCULAR HEMOGLOBIN 27 PG (25-34); MEAN CORPUSCULAR HGB CONC 35 G/DL (32-36); MEAN CORPUSCULAR VOLUME 79 FL (80-99); MEAN PLATELET VOLUME 12.1 FL (7.4-10.4); MONOCYTES # (AUTO) 0.7 X 10^3 (0.0-1.0); MONOCYTES % (AUTO) 13 % (0-12); NEUTROPHILS # (AUTO) 2.7 X 10^3 (1.8-7.8); NEUTROPHILS % (AUTO) 52 % (42-75); PLATELET COUNT 154 10^3/uL (130-400); RED CELL DISTRIBUTION WIDTH 14.6 % (10.0-14.5); WHITE BLOOD COUNT 5.2 10^3/uL (4.3-11.0)
[2019-02-03 06:19] LABS: ALANINE AMINOTRANSFERASE 345 U/L (0-55); ALBUMIN 2.8 GM/DL (3.2-4.5); ALKALINE PHOSPHATASE 400 U/L (40-136); BILIRUBIN,TOTAL 2.7 MG/DL (0.1-1.0); BUN/CREATININE RATIO 21; CALCIUM 8.1 MG/DL (8.5-10.1); CARBON DIOXIDE 19 MMOL/L (21-32); CHLORIDE 105 MMOL/L (98-107); CREATININE SERUM 0.58 MG/DL (0.60-1.30); GFR ESTIMATED > 60; GLUCOSE 67 MG/DL (70-105); POTASSIUM 3.7 MMOL/L (3.6-5.0); SODIUM 136 MMOL/L (135-145); TOTAL PROTEIN 5.2 GM/DL (6.4-8.2)
[2019-02-03] MEDS: QUININE SULF PO SCH ×2 (06:42→14:32)
[2019-02-03] MEDS ORDERED: DOXYCYCLINE 100 MG (VIBRAMYCIN) TABLET PO SCH (07:00)
[2019-02-03] MEDS ORDERED: ONDA4TAB11 PO (07:56)
[2019-02-03] MEDS ORDERED: QUIN324C PO (07:56)
[2019-02-03] MEDS ORDERED: CLIN150C17 PO (07:56)
[2019-02-03 08:00] VITALS: BP 106/61
[2019-02-03] MEDS: PANTOPRAZOLE 20 MG TABLET (PROTONIX) PO SCH (08:37)
[2019-02-03] MEDS: LORATADINE (CLARITIN) 10 MG TAB PO SCH (08:37)
--- NOTE | 2019-02-03 10:16 | Pulmonary Progress Note ---
Subjective Time Seen by a Provider: 10:14 Subjective/Events-last exam Pt feels improved. Sepsis Event Evaluation Height, Weight, BMI Height: 5'7.00" Weight: 119lbs. 6.0oz. 54.433270me; 30.2 BMI Method:Stated Focused Exam Lactate Level 01/31/19 20:22: Lactic Acid Level 1.51 Exam Exam Vital Signs Date Time Temp Pulse Resp B/P (MAP) Pulse Ox O2 Delivery O2 Flow Rate FiO2 02/03/19 08:40 Room Air 02/03/19 08:00 99.2 64 18 106/61 (76) 96 Room Air 02/03/19 04:00 98.2 67 18 111/66 (81) 96 Room Air 02/02/19 23:35 98.6 60 18 99/62 (74) 95 Room Air 02/02/19 21:00 Room Air 02/02/19 20:25 97.8 65 18 114/64 (81) 100 Room Air 02/02/19 16:25 98.5 73 18 116/58 (77) 96 Room Air 02/02/19 13:00 71 02/02/19 12:00 97.4 63 18 109/71 (84) 100 Room Air I & O 02/03/19 07:00 Intake Total 1410 ml Output Total 1 ml Balance 1409 ml Height & Weight Height: 5'7.00" Weight: 119lbs. 6.0oz. 54.818772oc; 30.2 BMI Method:Stated General Appearance: No Apparent Distress, WD/WN, Anxious HEENT: PERRL/EOMI, Pharynx Normal Neck: Full Range of Motion, Non Tender, Supple Respiratory: Chest Non Tender, No Accessory Muscle Use, No Respiratory Distress, Decreased Breath Sounds Cardiovascular: Regular Rate, Rhythm, No Edema Capillary Refill: Less Than 3 Seconds Gastrointestinal: non tender, soft, no organomegaly Extremity: Normal Capillary Refill, Non Tender, No Pedal Edema Neurologic/Psychiatric: Alert, Oriented x3 Skin: Normal Color, Warm/Dry Results Lab Laboratory Tests 02/02/19 05:30 02/02/19 05:32 02/03/19 05:28 Assessment/Plan Assessment/Plan acute hepatitis -hepatitis panel is negative -Morrison is neg -Abd US - is negative -Tick panel is neg - Pt denies any recent tick bites or exposure -Doxy Leukopenia -Monitor -Check viral panel -Montelongo cultures pending Thrombocypenia -Peripheral spear pending CHARLENE SERRANO DO Feb 03, 2019 10:16
[2019-02-03 12:00] VITALS: BP 129/70
--- NOTE | 2019-02-03 13:49 | NUR ---
Initial visit: pt shared about her tick-born illness, related fears and the relief of being diagnosed. She shared that she is from [place] and [facility] [employer] [facility]. Addendum: 02/03/19 at 1353 by JOSUE DIXON PAST *tick-borne: Babesiosis
[2019-02-03] MEDS ORDERED: CLINDAMYCIN 75MG/5ML (CLEOCIN) SUSP 100ML BTL PO SCH (14:00)
[2019-02-03 14:10] LABS: PARAINFLU 2 PCR Not Detected (Not Detected)
[2019-02-03] MEDS ORDERED: CLINDAMYCIN 150 MG (CLEOCIN) CAP PO ONE (14:25)
--- NOTE | 2019-02-03 14:50 | NUR ---
gave 600mg of clindamycin before discharge
--- NOTE | 2019-02-03 15:17 | NUR ---
DEONNA ALBA demonstrates understanding of discharge instructions and accurately returns instructions upon questioning. Copy of Post-Discharge Instructions and Medication Discharge Instructions given to patient . DEONNA ALBA is able to manage continuing needs after discharge. Patients belongings returned to patient. Skin dry and intact; no breakdown noted. Patient discharged from [facility]- on 02/03/19 at 1445. DEONNA ALBA left floor ambulatory, accompanied by family and staff. f/u appointment with Dr. Perez given to patient february 09 1015 and new scripts called in to [facility]
--- NOTE | 2019-02-03 21:38 | Discharge Instructions ---
Discharge [facility] Discharge Medications New Medications: Clindamycin HCl (Clindamycin HCl) 150 Mg Capsule 600 MG PO Q8H for 7 Days, #21 CAP 0 Refills Ondansetron (Ondansetron Odt) 4 Mg Tab.rapdis 4 MG PO Q6H PRN for NAUSEA/VOMITING-1ST LINE, #30 TAB 0 Refills Quinine Sulfate (Qualaquin) 324 Mg Capsule 648 MG PO Q8HR for 7 Days, #21 CAP 0 Refills Continued Medications: Multivitamin (Multivitamins) 1 Each Tablet 1 TAB PO DAILY, TAB (This prescription has been renewed) Omeprazole (Omeprazole) 20 Mg Capsule.dr 20 MG PO DAILY, CAP (This prescription has been renewed) Patient Instructions Goal/Follow Up Appt: Follow up with Dr. Perez Feb 09 at 10:45 Return to [facility] For: Fever, inability to keep down antibiotics Activity & Diet Discharge Diet: No Restrictions Activity as Tolerated: Yes Copy Copies To 1: KAVEH PEREZ MD, BETHANY N MD Feb 03, 2019 16:21
--- NOTE | 2019-02-03 21:44 | Discharge Summary ---
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 Discharged with clindamycin and quinine. Status: Resolved (2) Elevated LFTs Assessment & Plan: GB US okay, hepatitis panel pending, HIV pending, tick panel pending 02/02 Hep A/B/C neg, lyme and tularemia neg. Strep pneumo and Legionella neg, E chafeensis and RMSF neg. Status: Acute (3) Leukopenia Assessment & Plan: Improving but not resolved at d/c, will need follow up for resolution. Qualifiers: Qualified Codes: D72.819 - Decreased white blood cell count, unspecified Status: Acute (4) Thrombocytopenia Assessment & Plan: Suspect secondary to infection, monitor. Status: Acute Chief Complaint/HPI Chief Complaint/HPI 34 yo female started feeling sick about a week ago with fever and pain in various areas. She has had headache, nausea at times, pain in hands, hips, neck, shooting pains in legs. She denies rash, tick exposure, has not been camping or travelled. She has felt short of breath at times. Discharge Summary-Simple/Stand Consultations Discharge Physical Examination Allergies: Uncoded Allergies: rosinaiene (Allergy, Unknown, 01/28/19) Vitals & I&Os Vital Sign - Last 12Hours Date Time Temp Pulse Resp B/P (MAP) Pulse Ox O2 Delivery O2 Flow Rate FiO2 02/03/19 12:00 97.6 63 18 129/70 (89) 99 Room Air Intake and Output 02/03/19 00:00 Intake Total 1020 ml Output Total 1 ml Balance 1019 ml General Appearance: Alert, No Acute Distress Respiratory: Clear to Auscultation, Normal Air Movement Cardiovascular: Regular Rate, No Murmurs Neuro: Normal Speech Psych/Mental Status: Mental Status NL Hospital Course Was the Problem List Reviewed?: Yes See final discharge diagnosis. Labs Laboratory Tests Test 02/02/19 05:30 02/02/19 05:32 02/03/19 05:28 Range/Units Sodium Level 137 136 135-145 MMOL/L Potassium Level 3.5 L 3.7 3.6-5.0 MMOL/L Chloride Level 106 105 98-107 MMOL/L Carbon Dioxide Level 22 19 L 21-32 MMOL/L Anion Gap 9 12 5-14 MMOL/L Blood Urea Nitrogen 9 12 7-18 MG/DL Creatinine 0.58 L 0.58 L 0.60-1.30 MG/DL Estimat Glomerular Filtration Rate > 60 > 60 BUN/Creatinine Ratio 16 21 Glucose Level 74 67 L 70-105 MG/DL Calcium Level 8.0 L 8.1 L 8.5-10.1 MG/DL Corrected Calcium 9.0 9.1 8.5-10.1 MG/DL Total Bilirubin 2.7 H 2.7 H 0.1-1.0 MG/DL Aspartate Amino Transf (AST/SGOT) 476 H 256 H 5-34 U/L Alanine Aminotransferase (ALT/SGPT) 406 H 345 H 0-55 U/L Alkaline Phosphatase 341 H 400 H 40-136 U/L Total Protein 5.1 L 5.2 L 6.4-8.2 GM/DL Albumin 2.8 L 2.8 L 3.2-4.5 GM/DL HIV (1&2) Ag and Ab Screen Referral Non-Reactive Non-Reactive White Blood Count 3.2 L 5.2 4.3-11.0 10^3/uL Red Blood Count 4.26 L 4.05 L 4.35-5.85 10^6/uL Hemoglobin 11.6 11.1 L 11.5-16.0 G/DL Hematocrit 34 L 32 L 35-52 % Mean Corpuscular Volume 80 79 L 80-99 FL Mean Corpuscular Hemoglobin 27 27 25-34 PG Mean Corpuscular Hemoglobin Concent 34 35 32-36 G/DL Red Cell Distribution Width 14.6 H 14.6 H 10.0-14.5 % Platelet Count 116 L 154 130-400 10^3/uL Mean Platelet Volume 11.9 H 12.1 H 7.4-10.4 FL Neutrophils (%) (Auto) 49 52 42-75 % Lymphocytes (%) (Auto) 34 33 12-44 % Monocytes (%) (Auto) 14 H 13 H 0-12 % Eosinophils (%) (Auto) 2 1 0-10 % Basophils (%) (Auto) 1 0 0-10 % Neutrophils # (Auto) 1.6 L 2.7 1.8-7.8 X 10^3 Lymphocytes # (Auto) 1.1 1.7 1.0-4.0 X 10^3 Monocytes # (Auto) 0.5 0.7 0.0-1.0 X 10^3 Eosinophils # (Auto) 0.1 0.1 0.0-0.3 10^3/uL Basophils # (Auto) 0.0 0.0 0.0-0.1 10^3/uL Radiology Reviewed CXR 01/31 no acute findings Head CT 01/31 no acute findings Lumbar spine CT 01/31 IMPRESSION: Mild degenerative change of the lumbar spine at the L5-S1 joint, without evidence of acute fracture or subluxation. GB US 02/01 normal Discharge Instructions to patient/family Please see electronic discharge instructions given to patient. Discharge Medications Reviewed and agree with Discharge Medication list on patient's Discharge Instruction sheet Clinical Quality Measures DVT/VTE Risk/Contraindication: Risk Factor Score Per Nursin RFS Level Per Nursing on Admit: 0=No Risk/No VTE PPX Copy Copies To 1: KAVEH HENNESSY MD, BETHANY N MD Feb 03, 2019 21:44
[2019-02-06 08:49] LABS: PARAINFLU 1 PCR Not Detected (Not Detected); RSV PCR Not Detected (Not Detected)
== END 2019-02-03 15:21 | disposition home or self-care (01) | DRG 868 ==
LOC: EDUNIT# 20:01 → ER 20:03 → ICU 20:43 → 4TH 02-01 08:35
PROVIDERS: ADMIT Internal Medicine; ATTEND Family Medicine
DX: B60.0 Babesiosis (principal); B17.9 Acute viral hepatitis, unspecified; D72.819 Decreased white blood cell count, unspecified; D69.59 Other secondary thrombocytopenia; Z98.84 Bariatric surgery status
CPT/HCPCS: 36415; 70450; 71045; 72133; 76705; 80053; 80074; 80306; 80307; 81000; 82550; 83605; 83690; 83735; 84100; 84703; 85007; 85025; 85610; 85652; 85730; 86141; 86308; 86618; 86666; 86668; 86703; 86757; 87040; 87081; 87088; 87449; 87631; 87899; 96374; 96375

== ENCOUNTER → 2021-08-01 | Outpatient (CLI) | payer BC ==
[~2021-08-01] MED LIST changes: +CLIN150C20 PO; +MULT-567 PO; +OMEP20CA18 PO; +ONDA4TAB11 PO; +QUIN324C PO
--- NOTE | 2021-08-01 14:32 | Diagnostic Imaging Report ---
PROCEDURE: CT head without contrast. TECHNIQUE: Multiple contiguous axial images were obtained through the brain without the use of intravenous contrast. Auto Exposure Controls were utilized during the CT exam to meet ALARA standards for radiation dose reduction. INDICATION: Chronic vertigo and dizziness, worsening over the last six months. COMPARISON: Correlation is made with head CT from 01/31/2019. FINDINGS: The ventricles and sulci are within normal limits. No sulcal effacement or midline shift is identified. No acute intra-axial or extra-axial hemorrhage is detected. Cisterns are patent. Visualized paranasal sinuses are clear. IMPRESSION: No acute intracranial process is detected. Dictated by: Dictated on workstation # [id number]
== END ==
LOC: RAD FS 13:42
PROVIDERS: ATTEND Family Medicine
DX: R42 Dizziness and giddiness (principal)
CPT/HCPCS: 70450